=== PATIENT | female | born 1995 | race Two or more races ===

== ENCOUNTER 2024-09-15 18:40 | Emergency (ER) | payer MEDICAID, SELFPAY ==
[2024-09-15 19:09] VITALS: BP 122/81; PULSE 83; RESP 18; TEMP 37.2; O2SAT 97; BMI 31.4
--- NOTE | 2024-09-15 19:12 | PD.EDRME ---
Rapid Medical Screening Exam RME Arrival date/time: 09/15/24 18:40 29 year old female present to ED for c/o n/v/d for 1 day. 23 week . I have greeted and performed a focused initial assessment of this patient. A comprehensive ED assessment and evaluation of the patient, analysis of all test results, and completion of the medical decision making process will be conducted by additional ED providers. Chief Complaint: Nausea/Vomiting/Diarrhea Time Seen by Provider: 09/15/24 18:44 Vital signs: Vital Signs Temperature 99 F 09/15/24 19:09 Pulse Rate 83 09/15/24 19:09 Respiratory Rate 18 09/15/24 19:09 Blood Pressure 122/81 09/15/24 19:09 Pulse Oximetry (%) 97 09/15/24 19:09 Oxygen Delivery Method Room Air 09/15/24 19:09
[2024-09-15 19:39] LABS: Basophils % (Auto) 0 % (0-2.5); Eosinophils % (Auto) 0 % (0-10); Hematocrit 35.6 % (36.0-46.0); Hemoglobin 12.3 g/dL (12.0-16.0); Immature Granulocytes % (Auto) 0 % (0-0); Immature Granulocytes Auto 0.02 Thou/mm3 (0.00-0.00); Lymphocytes % (Auto) 13 % (10-50); Mean Corpuscular HGB Conc 34.6 g/dl (31.0-37.0); Mean Corpuscular Hemoglobin 30.8 pg (25.0-35.0); Mean Corpuscular Volume 89 fL (80-100); Monocytes # (Auto) 0.5 Thou/mm3 (0.0-0.8); Monocytes % (Auto) 6 % (0-12); Neutrophils # (Auto) 6.4 Thou/mm3 (1.8-7.7); Neutrophils % (Auto) 81 % (37-80); Nucleated Red Blood Cell % 0 /100 WBC (0); Platelet Count 233 Thou/mm3 (140-440); RDW Standard Deviation 43.9 fL (36.4-46.3); White Blood Count 7.9 Thou/mm3 (3.6-11.0)
[2024-09-15 19:54] LABS: Alanine Aminotransferase 37 U/L (10-49); Albumin, Serum 4.5 gm/dL (3.5-5.0); Albumin/Globulin Ratio 1.8 (1.2-2.2); Alkaline Phosphatase 89 U/L (46-116); Anion Gap 9 (7-16); Aspartate Amino Transferase 36 U/L (0-34); BUN/Creatinine Ratio 12 Ratio (12-20); Bilirubin,Total 1.1 mg/dL (0.3-1.2); Blood Urea Nitrogen 6 mg/dL (9-23); Calcium 9.3 mg/dL (8.3-10.6); Calcium (Corrected) 9.3 mg/dL (8.5-10.1); Carbon Dioxide 24.3 mMol/L (20.0-31.0); Chloride 102 mMol/L (98-107); Creatinine (Component) 0.5 mg/dL (0.6-1.3); Estimated Creatinine Clearance 200.7 mL/min (>60); Globulin 2.5 gm/dL (2.3-3.5); Glucose 95 mg/dL (74-106); Lipase 51 U/L (12-53); Osmolality,Calculated 267 (275-295); Potassium 3.7 mMol/L (3.4-5.1); Sodium 135 mMol/L (136-145); eGFR > 60 See Note
[2024-09-15 20:04] LABS: Collection Type, Urine Voided
[2024-09-15] MEDS: PROMETHAZINE INJ 25 MG/ML VIAL 12.5 MG IM (20:06)
[2024-09-15 20:14] LABS: Bilirubin,Urine Negative (Negative); Blood,Urine Negative (Negative); Clarity,Urine Turbid (Clear/Hazy); Color,Urine Yellow (Lt Yel-Yel); Glucose, Urine Negative (Negative); Ketones,Urine Trace (Negative); Leukocyte Esterase,Urine Positive (Negative); Nitrite,Urine Negative (Negative); PH,Urine 6.5 (5.0-7.0); Protein,Urine 1+ (Neg - Trace); RBC,Urine 17 /hpf (0-3); Specific Gravity,Urine 1.031 (1.001-1.035); Squamous Epithelial Cell,Urine 15 /hpf (0-5); WBC,Urine 6 /hpf (0-5)
[2024-09-15] MEDS: SODIUM CHLORIDE 0.9% 1000 ML 1,000 ML 999 ML IV ×2 (21:50→22:37)
--- NOTE | 2024-09-15 22:34 | PD.EDNV ---
Nausea/Vomit./Diarrhea-RME/HPI General Chief complaint: Nausea/Vomiting/Diarrhea Stated complaint: VOMITING/WEAK, 23 WKS PREG, NO PAIN Time Seen by Provider: 09/15/24 18:44 Arrival date/time: 09/15/24 18:40 Limitations: no limitations RME / HPI RME / HPI Narrative: 09/15/24 18:40 29 year old female present to ED for c/o n/v/d for 1 day. 23 week . I have greeted and performed a focused initial assessment of this patient. A comprehensive ED assessment and evaluation of the patient, analysis of all test results, and completion of the medical decision making process will be conducted by additional ED providers. ------- Dr. Raines's Main ED Evaluation: 29yo female who is at 23 weeks gestation presents to the ED for a complaints of nausea and vomiting since 0000. Patient states she's had persistent nausea and vomiting all day today and has felt generally weak, so she came in for evaluation. She denies any abdominal/pelvic pain, vaginal bleeding, diarrhea, fever, chills or any other associated symptoms. No known allergies. Related Data Previous Rx's ?Medication ?Instructions ?Recorded hydrocodone 5 mg-acetaminophen 325 1 tab PO BID PRN pain #10 tabs 09/23/ mg tablet ([place]) levofloxacin 500 mg tablet 500 mg PO QDAY #7 tabs 11/25/20 levofloxacin 500 mg tablet 500 mg PO QDAY #7 tabs 11/25/20 metronidazole 500 mg tablet 500 mg PO TID #21 tabs 11/25/20 (Flagyl) metronidazole 500 mg tablet 500 mg PO TID #21 tabs 11/25/20 (Flagyl) hydrocodone 5 mg-acetaminophen 325 1 tab PO BID PRN pain #7 tabs 05/02/21 mg tablet ondansetron HCl 4 mg tablet 4 mg PO Q8H PRN nausea and 05/02/21 (Zofran) vomiting #20 tabs Allergies Allergy/AdvReac Type Severity Reaction Status Date / Time No Known Allergies Allergy Verified 09/15/24 18:44 Review of Systems Review of Systems Systems Reviewed: All systems reviewed, normal except as documented Past Medical History Past Medical History CARDIAC: Negative Cardiac Disorders or Congestive Heart Failure RESPIRATORY: Negative Chronic Obstructive Pulmonary Disease (COPD) or Asthma GENITOURINARY: Negative Renal Disease ENDOCRINE: Negative Diabetes Mellitus Type 1 or Diabetes Mellitus Type 2 HEMATOLOGIC: Negative Sickle Cell Disease Social History SMOKING STATUS: 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 ED Exam General Limitations: Present no limitations General appearance: Present alert and in no apparent distress Head Head exam: Present atraumatic Eye Eye exam: Present normal appearance, PERRL and EOMI ENT ENT exam: Present normal exam, normal oropharynx and mucous membranes moist Neck Neck exam: Present normal inspection, full ROM and trachea midline Chest Chest inspection: Present normal inspection and symmetric chest wall rise Respiratory Respiratory exam: Present normal lung sounds bilaterally Cardiovascular Cardiovascular exam: Present regular rate, normal rhythm and normal heart sounds Abdominal Exam Abdominal exam: Present soft, normal bowel sounds and other (gravid, 2-3cm above umbilicus) Extremities Exam Extremities exam: Present normal inspection and full ROM Back Exam Back exam: Present normal inspection and full ROM Neurological Exam Neurological exam: Present alert, oriented X3 and CN II-XII intact Psychiatric Psychiatric exam: Present normal affect and normal mood Skin Skin exam: Present warm, dry, intact and normal color Course Quality Measures none Orders Category Date Time Status heart tone auscultation Q4H Care 09/15/24 19:14 Active IV [Insert IV] STAT Care 09/15/24 19:13 Active CBC Stat Lab 09/15/24 19:24 Completed CMP [Comprehensive Metabolic Panel] Stat Lab 09/15/24 19:24 Completed Lipase Stat Lab 09/15/24 19:24 Completed UA [Urinalysis] Stat Lab 09/15/24 19:23 Completed Urine Culture Stat Lab 09/15/24 19:23 Received Promethazine Inj [Phenergan Inj] Med 09/15/24 19:13 Discontinued 12.5 mg IM X1 ONE Sodium Chloride 0.9% 1000 ml [Ns] 1,000 ml Med 09/15/24 19:14 Discontinued IV 999 mls/hr Sodium Chloride 0.9% 1000 ml [Ns] 1,000 ml Med 09/15/24 22:33 Active IV 999 mls/hr Vital Signs Vital signs: Vital Signs Temperature 99 F 09/15/24 19:09 Pulse Rate 83 09/15/24 19:09 Respiratory Rate 18 09/15/24 19:09 Blood Pressure 122/81 09/15/24 19:09 Pulse Oximetry (%) 97 09/15/24 19:09 Oxygen Delivery Method Room Air 09/15/24 19:09 Pulse ox is 97% on room air, which is normal according to my interpretation. Nausea/Vomiting/Diarrhea Patient data External records reviewed:: [facility] previous records (Per chart review, patient was seen here on 06/27/24 for acute cystitis.) Clinical information provided by:: patient Social determinants that could affect healthcare access:: none Patient has the following chronic illnesses:: none How is presenting disease/condition affected by chronic disease/condition?: no chronic disease Evaluation data The following diagnostics were reviewed and interpreted by me:: lab results Lab and/or radiology exams considered but not ordered:: none Interpretation Summary: CBC is normal, CMP is normal, UA is unremarkable, according to my interpretation. Medications / Prescriptions Medications / Prescriptions considered but not ordered:: none Medication administrations:: Medication Administration History Sodium Chloride (Ns) 1,000 mls @ 999 mls/hr IV .Q1H1M ONE Stop: 09/15/24 23:33 Last Admin: 09/15/24 22:37 Dose: 999 mls/hr Documented By: TAE Discontinued Medications Sodium Chloride (Ns) 1,000 mls @ 999 mls/hr IV .Q1H1M ONE Stop: 09/15/24 20:14 Last Admin: 09/15/24 21:50 Dose: 999 mls/hr Documented By: TAE Promethazine HCl (Promethazine Inj 25 Mg/Ml Vial) 12.5 mg IM X1 ONE; Protocol Stop: 09/15/24 19:14 Last Admin: 09/15/24 20:06 Dose: 12.5 mg Documented By: TAE see above Consultations Consultation(s) initiated? (list below): No Diagnosis Nausea Differential Diagnosis: dehydration and other (hyperemesis gravidarum, UTI, electrolyte abnormality) Most likely diagnosis given after review of the tests above:: see below Admission Indicated Admission indicated?: not indicated Admission Request Was there a request for admission?: No Disposition Plan Disposition Plan: Discharge Discharge Attestation Discharge Attestation: The patient and all family members were given an opportunity to ask questions and understood the discharge instructions. Discharge instructions specifically effects, indications for sooner follow up or return to the emergency department, and the expected course of current diagnosis. Patient condition: Stable Discharge Plan Plan Patient Disposition: HOME (Self Care) Prescriptions/Referrals Prescriptions/Med Rec: No Action levofloxacin 500 mg tablet 500 mg PO QDAY Qty: 7 0RF metronidazole [Flagyl] 500 mg tablet 500 mg PO TID Qty: 21 0RF levofloxacin 500 mg tablet 500 mg PO QDAY Qty: 7 0RF metronidazole [Flagyl] 500 mg tablet 500 mg PO TID Qty: 21 0RF hydrocodone-acetaminophen [[place]] 5-325 mg tablet 1 tab PO BID MDD 10mg PRN (Reason: pain) Qty: 10 0RF hydrocodone-acetaminophen 5-325 mg tablet 1 tab PO BID MDD 2 PRN (Reason: pain) Qty: 7 0RF ondansetron HCl [Zofran] 4 mg tablet 4 mg PO Q8H PRN (Reason: nausea and vomiting) Qty: 20 0RF Referrals: Benjamin Roberto MD [Primary Care Provider] - In 1 week Problem List Clinical Impression: Dehydration, Intrauterine Patient/Caregiver Discharge Instructions Education Materials: ED Dehydration (Adult) Additional Instructions: Call your DATA ENTRY PROCESSOR on Thursday. Return to emergency department if you are having any pain, you feel like your water has broken, you have having any cramps in your abdomen, or any other concerns. Print Language: Albanian Stand Alone Forms: Liliana Award Info., Work/School Release, Patient Portal Info Letter
== END 2024-09-16 00:44 | disposition home or self-care (01) ==
PROVIDERS: Physician Assistant; Emergency Provider Emergency Medicine; PCP Family Medicine
DX: O99.282 Endocrine, nutritional and metabolic diseases complicating pregnancy, second trimester (principal); E86.0 Dehydration; Z3A.23 23 weeks gestation of pregnancy
CPT/HCPCS: 36415; 80053; 81001; 83690; 85025; 87086; 96372; 99284; J2550; J7030

== ENCOUNTER 2024-12-06 09:52 | Outpatient (AMB) | payer MEDICAID, SELFPAY ==
--- NOTE | 2024-12-06 10:07 | OBCLNT_ITS ---
Vital Signs 12/06/24 10:08 Height 1.73 m Height Method Stated Weight 93.95 kg Weight Measurement Method Standing Scale BMI 31.4 BP 126/86 H Blood Pressure Source Automatic Cuff Blood Pressure Location Left Upper Arm Position Sitting Respiration 14 Pulse 68 Pulse Source Monitor Temp 97.7 F Temp Source Oral Pulse Oximetry (%) 97 Oxygen Delivery Method Room Air Allergies/Home Meds Allergies & Medications Allergies No Known Allergies Allergy (Verified 12/06/24 10:13) Medication Reconciliation ondansetron HCl 4 mg tablet (Zofran) 4 mg PO Q8H PRN nausea and vomiting #20 tabs 05/02/21 [Rx Confirmed 12/06/24] Intake Visit Data Collection New Patient or Established: Established Patient (seen at [facility] within 3 years) Reason for Visit:: CARE Seen by Clinical Staff ONLY (RN/MA): No Tear Down Worker Required: No Do You Feel Safe at Home: Yes Authorities Contacted: N/A PCP or OBGYN visit in last 3 months: Yes Hx Now: Yes Are you currently on any form of Control: No Last menstrual period: 04/01/24 Pain Present Currently: No Pain Scale Used: Wright-Juarez/Numerical Pain scale:: 0 Smoking Status Smoking Status: 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 Questionnaires Covid-19 Vaccine Questionnaire Has patient been vacinated for Covid-19 Have you been vacinated for Covid-19: Yes PHQ-9 PHQ-2 Over the last 2 weeks, how often have you been bothered by any of the following problems? 1. Little interest or pleasure in doing things: not at all 2. Feeling down, depressed, or hopeless: not at all Total score: 0 PHQ-9 3. Trouble falling or staying asleep, or sleeping too much: Not at all 4. Feeling tired or having little energy: Not at all 5. Poor appetite or overeating: Not at all 6. Feeling bad about yourself - or that you are a failure or have let yourself or your family down: Not at all 7. Trouble concentrating on things, such as reading the newspaper or watching television: Not at all 8. Moving or speaking so slowly that other people could have noticed? - Or the opposite - being so fidgety or restless that you have been moving around a lot more than usual: not at all 9. Thoughts that you would be better off or of hurting yourself in some way: Not at all Total score: 0 Source: Developed by Drs. Mitchel Richardson, Renae Mariee, Rogerio Nichole and colleagues, with an educational angela from [email or web address]. Depression screen completed yes Social History Living Situation History Marital Status: Lives With: Family Housing: House Tobacco History Smoking Status: 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 Second Hand Smoke Exposure: No Alcohol History Alcohol Intake: Never Domestic Abuse History Do You Feel Safe at Home: Yes Past Medical History Past Medical History Have you ever been diagnosed with any of the following: Neurological Problems Cerebrovascular Accident (CVA): No Transient Ischemic Attacks (TIA): No Dementia: No Alzheimer's Disease: No Parkinson's Disease: No Brain Tumor: No Guillain-Crawford Syndrome: No Cardiology Problems Myocardial Infarction: No Cardiac Arrhythmia: No Atrial Fibrillation: No Angina: No Heart Murmur: No Coronary Artery Disease: No Atherosclerotic Heart Disease: No Congestive Heart Failure: No Hypertension: No (FATHER) Respiratory Problems Chronic Obstructive Pulmonary Disease (COPD): No Asthma: No Bronchitis: No Emphysema: No Pneumonia: No Stomache/Intestinal Problems Liver Cancer: No Hepatitis: No Cirrhosis: No Pancreatic Cancer: No Ulcer: No Colorectal Cancer: No Irritable Bowel: No Crohn's Disease: No Genital/Urinary Problems Chronic Kidney Disease: No Renal Disease: No Reproductive Problems Breast Cancer: No Endometriosis: No Fibroids: No Genital Herpes: No Gonorrhea: No Pelvic Inflammatory Disease: No Musculoskeletal Problems Muscular Dystrophy: No Myasthenia Gravis: No Marfan's Syndrome: No Bone Cancer: No Arthritis: No Rheumatoid Arthritis: No Head,Eye,Nose,Throat Problems Cataracts: No Glaucoma: No Blind: No Endocrine Problems Diabetes Mellitus Type 1: No Diabetes Mellitus Type 2: No Blood Problems Sickle Cell Disease: No History of Present Illness HPI Narrative 29-year-old 1 para 0 that comes for her first OB visit to [facility]. Patient has been followed at [facility] for the first part of her and she is transferring her care. Patient has had no problems with the current . Her last period is April 01, 2024. This gives due date January 06, 2025. Patient is Rh+. Hepatitis negative. RPR nonreactive. HIV negative. Her GC and Chlamydia were negative. She had normal 1 hour. Patient is due for her GBS next visit. Patient has been followed at Dr. Bro's office for her care. Ultrasounds have been normal. And baby has had normal growth. NIPT and carrier screens were negative. Patient denies chronic illness. Denies social habits. Denies any surgeries. OB Initial Visit Menstrual History Menstrual reliability: definite Flow: normal Menstrual regularity: regular Monthly: Yes Age at menarche: 12 On control pills at conception: No Date of positive home test: 05/02/24 Associated symptoms (LMP): Denies amenorrhea, nausea, vomiting, fatigue, breast tenderness, urinary frequency, irritability, bloating or other OB History : 1 # of Living Children: 0 Infection History & Risk Evaluation History of STDs: none Patient or partner has history of Genital Herpes: No Genetic Screening & History Genetic Screening/Teratology Counseling - Includes patient, baby's father, or anyone in either family with: 1. Patient's age 35 years or older as of estimated date of delivery: No 2. Thalassemia (Welsh, Citizen Of The [place], Mediterranean, or Background); MCV less than 80: No 3. Neural Tube Defect (Meningomyelocele, Spina Bifida, or Anencephaly): No 4. Congenital Heart Defect: No 5. Down Syndrome: No 6. Robby-Sachs (Ashkenazi Christianity, Cajun, Urdu Argentine): No 7. Luis Alberto Disease (Ashkenazi Christianity): No 8. Familial Dysautonomia (Ashkenazi Christianity): No 9. Sickle Cell Disease or Trait (): No 10. Hemophilia or other blood disorders: No 11. Muscular Dystrophy: No 12. Cystic Fibrosis: No 13. Faywood's Chorea: No 14. Mental Retardation/Autism: No 15. Other inherited genetic or chromosomal disorder: No 16. Maternal Metabolic Disorder (EG,TYPE 1 Diabetes, PKU): No 17. Patient or baby's father had a child with defects not listed above: No 18. Recurrent loss or a stillbirth: No 19. Medications (including supplements, vitamins, herbs or otc drugs)/illicit/recreational drugs/alcohol since last menstrual period: No 20. Any other: No Infection History 1. Live with someone with TB or exposed to TB: No 2. Rash or viral illness since last menstrual period: No 3. Hepatitis B,C: No Other (see comments) Source: [employer] OB Flowsheet OB Flowsheet Initial Weight: Not Recorded Date -?-?-?-?-?-?-?-?-?-?-?-?- EGA Weight Edema CTX Effacement BP Fundal ht Pres Dilation Effacement Station Visit Note Alb Glu FHR Mov 12/06/24 -?-?-?-?-?-?-?-?-?-?-?-?- 35w 4d 93.95 kg absent absent 126/86 35 cephalic Reports movement. Denies contractions. Patient continues to work. Continue to take vitamins. kick count discussed with patient. Medical release for records. GBS next visit return in 1 week OB check 154 active Review of Systems Review of Systems Systems Reviewed: All systems reviewed, normal except as documented Constitutional Constitutional: Denies fatigue Gastrointestinal Gastrointestinal: Denies bloating, Denies nausea and Denies vomiting Genitourinary Genitourinary: Denies amenorrhea and Denies urinary frequency Psychiatric Psychiatric: Denies irritability Endocrine Endocrine: Denies fatigue Exam General Limitations: no limitations General Appearance: alert, in no apparent distress, comfortable, cooperative, healthy appearing, well developed and well groomed Head Head exam: atraumatic, normocephalic and normal inspection Chest Chest inspection: Present normal inspection and symmetric chest wall rise Resp Respiratory exam: Present normal lung sounds bilaterally Card Cardiovascular exam: Present regular rate, normal rhythm and normal heart sounds Abdominal Abdominal exam: Present soft and normal bowel sounds Psych Psychiatric exam: Present normal affect and normal mood Assessment & Plan Diagnosis / Problem List (1) : Status: Acute Qualifiers: Weeks of gestation: 35 weeks Qualified Code(s): Z3A.35 - 35 weeks gestation of Plan continue PNV, medical release, fkc bid, note for work, gbs nv Additional Plan Follow Up: 1 Week Office Procedures OB Clinic LOC & Office Proc's Nursing/Assessment Patient Status: Established Patient OB Clinic Nursing Assessment: Medication Reconciliation, Update PMH in EMR and Vital Signs OB Clinic Coordination of Care: Complex Care and Chronic Disease 1-5, Consent,records obtained, informed consent, Education Simp Pt/Fam, Results/Orders obtained and Staff clarify orders Special Needs: Heart tones Established Patient Charge Established Patient Point Assignment: 120 Established Patient Point Charge: EP Level 4 (120-155)
[2024-12-06 10:08] VITALS: BP 126/86; PULSE 68; RESP 14; TEMP 36.5; O2SAT 97; BMI 31.4
== END 2024-12-06 10:22 | disposition home or self-care (01) ==
LOC: HODSOBC 09:52
PROVIDERS: PCP Family Medicine; Referring Provider Family Medicine; Supervising Provider Obstetrics & Gynecology; Visit Provider Advanced Practice Midwife
DX: Z34.03 Encounter for supervision of normal first pregnancy, third trimester (principal); Z3A.35 35 weeks gestation of pregnancy
CPT/HCPCS: 99214; G0463

== ENCOUNTER 2024-12-14 14:31 | Outpatient (AMB) | payer MEDICAID, SELFPAY ==
--- NOTE | 2024-12-14 14:52 | AMB.OBVISIT ---
Vital Signs 12/14/24 14:53 12/14/24 15:22 Height 1.73 m Height Method Stated Weight 92.986 kg Weight Measurement Method Standing Scale BMI 31.0 BP 138/86 H 147/94 H Blood Pressure Source Automatic Cuff Automatic Cuff Blood Pressure Location Left Upper Arm Right Lower Arm Position Sitting Sitting Respiration 14 Pulse 64 Pulse Source Monitor Temp 97.7 F Temp Source Oral Pulse Oximetry (%) 98 Oxygen Delivery Method Room Air Allergies/Home Meds Allergies & Medications Allergies No Known Allergies Allergy (Verified 12/14/24 14:54) Medication Reconciliation No Known Home Medications 12/14/24 [History Confirmed 12/14/24] Intake Visit Data Collection New Patient or Established: Established Patient (seen at [facility] within 3 years) Reason for Visit:: CARE Seen by Clinical Staff ONLY (RN/MA): No Institution Director Required: No Do You Feel Safe at Home: Yes Authorities Contacted: N/A PCP or OBGYN visit in last 3 months: Yes Date of Last PCP or OBGYN visit: 12/06/24 Hx Now: Yes Are you currently on any form of Control: No Pain Present Currently: No Pain Scale Used: Wright-Juarez/Numerical Pain scale:: 0 Smoking Status Smoking Status: 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 Questionnaires Covid-19 Vaccine Questionnaire Has patient been vacinated for Covid-19 Have you been vacinated for Covid-19: Yes PHQ-9 PHQ-2 Over the last 2 weeks, how often have you been bothered by any of the following problems? 1. Little interest or pleasure in doing things: not at all 2. Feeling down, depressed, or hopeless: not at all Total score: 0 PHQ-9 3. Trouble falling or staying asleep, or sleeping too much: Not at all 4. Feeling tired or having little energy: Not at all 5. Poor appetite or overeating: Not at all 6. Feeling bad about yourself - or that you are a failure or have let yourself or your family down: Not at all 7. Trouble concentrating on things, such as reading the newspaper or watching television: Not at all 8. Moving or speaking so slowly that other people could have noticed? - Or the opposite - being so fidgety or restless that you have been moving around a lot more than usual: not at all 9. Thoughts that you would be better off or of hurting yourself in some way: Not at all Total score: 0 Source: Developed by Drs. Mitchel Richardson, Renae Mariee, Rogerio Nichole and colleagues, with an educational angela from [employer]. Depression screen completed yes Social History Living Situation History Lives With: Family Housing: House Tobacco History Smoking Status: 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 Second Hand Smoke Exposure: No Alcohol History Alcohol Intake: Never Domestic Abuse History Do You Feel Safe at Home: Yes Past Medical History Past Medical History Have you ever been diagnosed with any of the following: Neurological Problems Cerebrovascular Accident (CVA): No Transient Ischemic Attacks (TIA): No Dementia: No Alzheimer's Disease: No Parkinson's Disease: No Brain Tumor: No Guillain-[place] Syndrome: No Cardiology Problems Myocardial Infarction: No Cardiac Arrhythmia: No Atrial Fibrillation: No Angina: No Heart Murmur: No Coronary Artery Disease: No Atherosclerotic Heart Disease: No Congestive Heart Failure: No Hypertension: No (FATHER) Respiratory Problems Chronic Obstructive Pulmonary Disease (COPD): No Asthma: No Bronchitis: No Emphysema: No Pneumonia: No Stomache/Intestinal Problems Liver Cancer: No Hepatitis: No Cirrhosis: No Pancreatic Cancer: No Ulcer: No Colorectal Cancer: No Irritable Bowel: No Crohn's Disease: No Genital/Urinary Problems Renal Disease: No Reproductive Problems Breast Cancer: No Endometriosis: No Fibroids: No Genital Herpes: No Gonorrhea: No Pelvic Inflammatory Disease: No Musculoskeletal Problems Muscular Dystrophy: No Myasthenia Gravis: No Marfan's Syndrome: No Bone Cancer: No Arthritis: No Rheumatoid Arthritis: No Head,Eye,Nose,Throat Problems Cataracts: No Glaucoma: No Blind: No Endocrine Problems Diabetes Mellitus Type 1: No Diabetes Mellitus Type 2: No Blood Problems Sickle Cell Disease: No Visit OB Visit Log OB Flowsheet Initial Weight: Not Recorded Date <del>?</del> EGA Weight Edema CTX Effacement BP Fundal ht Pres Dilation Effacement Station Visit Note Alb Glu FHR Mov 12/06/24 <del>?</del> 35w 4d 93.95 kg absent absent 126/86 35 cephalic Reports movement. Denies contractions. Patient continues to work. Continue to take vitamins. kick count discussed with patient. Medical release for records. GBS next visit return in 1 week OB check 154 active 12/14/24 <del>?</del> 36w 5d 92.986 kg absent absent 138/86 147/94 35 cephalic Patient reports being nervous today. Reviewed signs and symptoms of labor and when to go to the hospital. I discussed also pain med options at the hospital. Reviewed kick count with patient. At this time patient denies headache and blurred vision. And I reviewed PIH symptoms with patient as well. Avoid salty foods. Kick count twice a day. Increase fluids. Patient sent to labor and delivery for PIH workup. Return in 1 week OB check. GBS today. Fetus active, no edema, dtr 2 +/no clonus reviewed mfm sonos with patient, EFW 22%, 2 small vsd were noted. Patient reports being nervous today. Reviewed signs and symptoms of labor and when to go to the hospital. I discussed also pain med options at the hospital. Reviewed kick count with patient. At this time patient denies headache and blurred vision. And I reviewed PIH symptoms with patient as well. Avoid salty foods. Kick count twice a day. Increase fluids. Patient sent to labor and delivery for PIH workup. Return in 1 week OB check. GBS today. Fetus active, no edema, dtr 2 +/no clonus 156 active LILI Calculator Estimated Delivery Date Method Current WG Current Estimate 01/06/25 Ultrasound #2 36w 5d Other Estimates 01/06/25 LMP (Certain) 36w 5d 01/06/25 Ultrasound #1 36w 5d Assessment & Plan Diagnosis / Problem List (1) Encounter for care in third trimester of first : Status: Acute Plan To labor and delivery for PIH workup today. Discussed PIH precautions. Avoid salty foods. Increase fluids. GBS today. Labor precautions and kick counts twice daily. Return in 1 week OB check Additional Plan Follow Up: 1 Week (obc) Office Procedures OB Clinic LOC & Office Proc's Nursing/Assessment Patient Status: Established Patient OB Clinic Nursing Assessment: Medication Reconciliation, Update PMH in EMR and Vital Signs OB Clinic Coordination of Care: Complex Care and Chronic Disease 1-5, Consent,records obtained, informed consent, Education Simp Pt/Fam and Staff clarify orders Special Needs: Heart tones Miscellaneous Interventions: Blood/Urine Collection Established Patient Charge Established Patient Point Assignment: 145 Established Patient Point Charge: EP Level 4 (120-155)
[2024-12-14 14:53] VITALS: BP 138/86; PULSE 64; RESP 14; TEMP 36.5; O2SAT 98; BMI 31.0
[2024-12-14 15:22] VITALS: BP 147/94
== END 2024-12-14 15:34 | disposition home or self-care (01) ==
LOC: HODSOBC 14:31
PROVIDERS: PCP Advanced Practice Midwife; Referring Provider Advanced Practice Midwife; Supervising Provider Advanced Practice Midwife; Visit Provider Advanced Practice Midwife
DX: Z34.03 Encounter for supervision of normal first pregnancy, third trimester (principal); Z3A.36 36 weeks gestation of pregnancy
CPT/HCPCS: 99214; G0463

== ENCOUNTER 2024-12-14 15:35 | Observation (INO) | payer MEDICAID, SELFPAY ==
[2024-12-14] VITALS (7 sets, daily range): BP systolic 121–123; BP diastolic 79–84; PULSE 58–70; RESP 16–98; TEMP 36.7; O2SAT 98–99
[2024-12-14 16:33] LABS: Collection Type, Urine Clean Catch
[2024-12-14 16:47] LABS: Bacteria,Urine Rare; Bilirubin,Urine Negative (Negative); Blood,Urine Negative (Negative); Color,Urine Yellow (Lt Yel-Yel); Glucose, Urine Negative (Negative); Hyaline Casts,Urine < 1 /hpf (0-1); Ketones,Urine Negative (Negative); Leukocyte Esterase,Urine Positive (Negative); Nitrite,Urine Negative (Negative); Protein,Urine Trace (Neg - Trace); RBC,Urine 5 /hpf (0-3); Specific Gravity,Urine 1.022 (1.001-1.035); Squamous Epithelial Cell,Urine 18 /hpf (0-5); Urobilinogen,Urine Negative mg/dL (0.0-1.0); WBC,Urine 3 /hpf (0-5)
[2024-12-14 16:52] LABS: Clarity,Urine Hazy (Clear/Hazy)
[2024-12-14 16:59] LABS: Alanine Aminotransferase 36 U/L (10-49); Albumin, Serum 4.2 gm/dL (3.5-5.0); Albumin/Globulin Ratio 1.4 (1.2-2.2); Alkaline Phosphatase 166 U/L (46-116); Anion Gap 11 (7-16); Aspartate Amino Transferase 21 U/L (0-34); BUN/Creatinine Ratio 12 Ratio (12-20); Bilirubin,Total 1.1 mg/dL (0.3-1.2); Blood Urea Nitrogen 7 mg/dL (9-23); Calcium 9.2 mg/dL (8.3-10.6); Calcium (Corrected) 9.2 mg/dL (8.5-10.1); Carbon Dioxide 20.3 mMol/L (20.0-31.0); Chloride 105 mMol/L (98-107); Creatinine (Component) 0.6 mg/dL (0.6-1.3); Globulin 2.9 gm/dL (2.3-3.5); Glucose 75 mg/dL (74-106); Osmolality,Calculated 268 (275-295); Potassium 4.1 mMol/L (3.4-5.1); Sodium 136 mMol/L (136-145); Total Protein 7.1 gm/dL (5.7-8.2); Uric Acid 3.7 mg/dL (3.1-7.8); eGFR > 60 See Note
[2024-12-14 17:03] LABS: Basophils % (Auto) 0 % (0-2.5); Eosinophils % (Auto) 1 % (0-10); Hematocrit 39.6 % (36.0-46.0); Hemoglobin 13.5 g/dL (12.0-16.0); Immature Granulocytes % (Auto) 0 % (0-0); Immature Granulocytes Auto 0.02 Thou/mm3 (0.00-0.00); Lymphocytes # (Auto) 2.2 Thou/mm3 (1.0-4.8); Lymphocytes % (Auto) 28 % (10-50); Mean Corpuscular HGB Conc 34.1 g/dl (31.0-37.0); Mean Corpuscular Volume 88 fL (80-100); Monocytes # (Auto) 0.4 Thou/mm3 (0.0-0.8); Monocytes % (Auto) 5 % (0-12); Neutrophils % (Auto) 65 % (37-80); Nucleated Red Blood Cell % 0 /100 WBC (0); Platelet Count 276 Thou/mm3 (140-440); RDW Standard Deviation 41.7 fL (36.4-46.3); White Blood Count 7.7 Thou/mm3 (3.6-11.0)
[2024-12-14 17:12] LABS: INR 0.9 (0.9-1.3); Partial Thromboplastin Time 27.6 Seconds (22.0-36.0); Prothrombin Time 10.4 Seconds (9.0-12.2)
[2024-12-14 17:30] LABS: Fibrinogen 602 mg/dL (175-375)
== END 2024-12-14 17:30 | disposition home or self-care (01) ==
PROVIDERS: Advanced Practice Midwife; Admitting Provider Specialist; Visit Provider Specialist
DX: Z34.90 Encounter for supervision of normal pregnancy, unspecified, unspecified trimester (principal); Z3A.00 Weeks of gestation of pregnancy not specified
CPT/HCPCS: 36415; 59899; 80053; 81001; 84550; 85025; 85384; 85610; 85730

== ENCOUNTER 2024-12-19 14:53 | Outpatient (AMB) | payer MEDICAID, SELFPAY ==
--- NOTE | 2024-12-19 15:21 | AMB.OBVISIT ---
Vital Signs 12/19/24 15:22 Weight 92.306 kg Weight Measurement Method Standing Scale BP 144/88 H Blood Pressure Source Automatic Cuff Blood Pressure Location Left Upper Arm Position Sitting Respiration 18 Pulse 98 Pulse Source Monitor Temp 97.2 F Temp Source Oral Pulse Oximetry (%) 99 Oxygen Delivery Method Room Air Allergies/Home Meds Allergies & Medications Allergies No Known Allergies Allergy (Verified 12/19/24 15:22) Medication Reconciliation aspirin 81 mg chewable tablet 12/14/24 [History Confirmed 12/19/24] vit no.95-ferrous fumarate 28 mg-folic acid 800 mcg tablet () tab PO 12/14/24 [History Confirmed 12/19/24] Intake Visit Data Collection New Patient or Established: Established Patient (seen at [facility] within 3 years) Seen by Clinical Staff ONLY (RN/MA): No 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 1. Little interest or pleasure in doing things: not at all 2. Feeling down, depressed, or hopeless: not at all Total score: 0 PHQ-9 3. Trouble falling or staying asleep, or sleeping too much: Not at all 4. Feeling tired or having little energy: Not at all 5. Poor appetite or overeating: Not at all 6. Feeling bad about yourself - or that you are a failure or have let yourself or your family down: Not at all 7. Trouble concentrating on things, such as reading the newspaper or watching television: Not at all 8. Moving or speaking so slowly that other people could have noticed? - Or the opposite - being so fidgety or restless that you have been moving around a lot more than usual: not at all 9. Thoughts that you would be better off or of hurting yourself in some way: Not at all Total score: 0 If you checked off any problems, how difficult have these problems made it for you to do your work, take care of things at home, or get along with other people?: not difficult at all Source: Developed by Drs. Mitchel Richardson, Renae Mariee, Rogerio Nichole and colleagues, with an educational angela from [employer]. Depression screen completed yes Social History Living Situation History Lives With: Family Housing: House Tobacco History Smoking Status: 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 Second Hand Smoke Exposure: No Alcohol History Alcohol Intake: Never Domestic Abuse History Do You Feel Safe at Home: Yes Past Medical History Past Medical History Have you ever been diagnosed with any of the following: Neurological Problems Cerebrovascular Accident (CVA): No Transient Ischemic Attacks (TIA): No Dementia: No Alzheimer's Disease: No Parkinson's Disease: No Brain Tumor: No Guillain-[place] Syndrome: No Cardiology Problems Myocardial Infarction: No Cardiac Arrhythmia: No Atrial Fibrillation: No Angina: No Heart Murmur: No Coronary Artery Disease: No Atherosclerotic Heart Disease: No Congestive Heart Failure: No Hypertension: No (FATHER) Respiratory Problems Chronic Obstructive Pulmonary Disease (COPD): No Asthma: No Bronchitis: No Emphysema: No Pneumonia: No Stomache/Intestinal Problems Liver Cancer: No Hepatitis: No Cirrhosis: No Pancreatic Cancer: No Ulcer: No Colorectal Cancer: No Irritable Bowel: No Crohn's Disease: No Genital/Urinary Problems Renal Disease: No Reproductive Problems Breast Cancer: No Endometriosis: No Fibroids: No Genital Herpes: No Gonorrhea: No Pelvic Inflammatory Disease: No Musculoskeletal Problems Muscular Dystrophy: No Myasthenia Gravis: No Marfan's Syndrome: No Bone Cancer: No Arthritis: No Rheumatoid Arthritis: No Head,Eye,Nose,Throat Problems Cataracts: No Glaucoma: No Blind: No Endocrine Problems Diabetes Mellitus Type 1: No Diabetes Mellitus Type 2: No Blood Problems Sickle Cell Disease: No Visit OB Visit Log OB Flowsheet Initial Weight: Not Recorded Date <del>?</del> EGA Weight Edema CTX Effacement BP Fundal ht Pres Dilation Effacement Station Visit Note Alb Glu FHR Mov 12/06/24 <del>?</del> 35w 4d 93.95 kg absent absent 126/86 35 cephalic Reports movement. Denies contractions. Patient continues to work. Continue to take vitamins. kick count discussed with patient. Medical release for records. GBS next visit return in 1 week OB check 154 active 12/14/24 <del>?</del> 36w 5d 92.986 kg absent absent 138/86 147/94 35 cephalic Patient reports being nervous today. Reviewed signs and symptoms of labor and when to go to the hospital. I discussed also pain med options at the hospital. Reviewed kick count with patient. At this time patient denies headache and blurred vision. And I reviewed PIH symptoms with patient as well. Avoid salty foods. Kick count twice a day. Increase fluids. Patient sent to labor and delivery for PIH workup. Return in 1 week OB check. GBS today. Fetus active, no edema, dtr 2 +/no clonus reviewed mfm sonos with patient, EFW 22%, 2 small vsd were noted. Patient reports being nervous today. Reviewed signs and symptoms of labor and when to go to the hospital. I discussed also pain med options at the hospital. Reviewed kick count with patient. At this time patient denies headache and blurred vision. And I reviewed PIH symptoms with patient as well. Avoid salty foods. Kick count twice a day. Increase fluids. Patient sent to labor and delivery for PIH workup. Return in 1 week OB check. GBS today. Fetus active, no edema, dtr 2 +/no clonus 156 active LILI Calculator Estimated Delivery Date Method Current WG Current Estimate 01/06/25 Ultrasound #2 37w 3d Other Estimates 01/06/25 LMP (Certain) 37w 3d 01/06/25 Ultrasound #1 37w 3d Office Procedures OB Clinic LOC & Office Proc's Nursing/Assessment Patient Status: Established Patient OB Clinic Nursing Assessment: BP Monitoring, Medication Reconciliation, Update PMH in EMR and Vital Signs OB Clinic Coordination of Care: Consent,records obtained, informed consent, Education Simp Pt/Fam and Staff clarify orders Special Needs: Heart tones Established Patient Charge Established Patient Point Assignment: 105 Established Patient Point Charge: EP Level 3 (80-115)
[2024-12-19 15:22] VITALS: BP 144/88; PULSE 98; RESP 18; TEMP 36.2; O2SAT 99
--- NOTE | 2024-12-19 15:22 | AMB.OBVISIT ---
Vital Signs 12/19/24 15:22 Weight 92.306 kg Weight Measurement Method Standing Scale BP 144/88 H Blood Pressure Source Automatic Cuff Blood Pressure Location Left Upper Arm Position Sitting Respiration 18 Pulse 98 Pulse Source Monitor Temp 97.2 F Temp Source Oral Pulse Oximetry (%) 99 Oxygen Delivery Method Room Air Allergies/Home Meds Allergies & Medications Allergies No Known Allergies Allergy (Verified 12/19/24 15:22) Medication Reconciliation aspirin 81 mg chewable tablet 12/14/24 [History Confirmed 12/19/24] vit no.95-ferrous fumarate 28 mg-folic acid 800 mcg tablet () tab PO 12/14/24 [History Confirmed 12/19/24] Intake Visit Data Collection New Patient or Established: Established Patient (seen at [facility] within 3 years) Reason for Visit:: rourine OB check Do You Feel Safe at Home: Yes Authorities Contacted: N/A PCP or OBGYN visit in last 3 months: Yes Smoking Status Smoking Status: 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 Questionnaires PHQ-9 PHQ-2 Over the last 2 weeks, how often have you been bothered by any of the following problems? 1. Little interest or pleasure in doing things: not at all PHQ-9 8. Moving or speaking so slowly that other people could have noticed? - Or the opposite - being so fidgety or restless that you have been moving around a lot more than usual: not at all Total score: 0 Source: Developed by Drs. Mitchel Richardson, Renae Mariee, Rogerio Nichole and colleagues, with an educational angela from [employer]. Social History Living Situation History Lives With: Family Housing: House Tobacco History Smoking Status: 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 Second Hand Smoke Exposure: No Alcohol History Alcohol Intake: Never Domestic Abuse History Do You Feel Safe at Home: Yes Past Medical History Past Medical History Have you ever been diagnosed with any of the following: Neurological Problems Cerebrovascular Accident (CVA): No Transient Ischemic Attacks (TIA): No Dementia: No Alzheimer's Disease: No Parkinson's Disease: No Brain Tumor: No Guillain-[place] Syndrome: No Cardiology Problems Myocardial Infarction: No Cardiac Arrhythmia: No Atrial Fibrillation: No Angina: No Heart Murmur: No Coronary Artery Disease: No Atherosclerotic Heart Disease: No Congestive Heart Failure: No Hypertension: No (FATHER) Respiratory Problems Chronic Obstructive Pulmonary Disease (COPD): No Asthma: No Bronchitis: No Emphysema: No Pneumonia: No Stomache/Intestinal Problems Liver Cancer: No Hepatitis: No Cirrhosis: No Pancreatic Cancer: No Ulcer: No Colorectal Cancer: No Irritable Bowel: No Crohn's Disease: No Genital/Urinary Problems Renal Disease: No Reproductive Problems Breast Cancer: No Endometriosis: No Fibroids: No Genital Herpes: No Gonorrhea: No Pelvic Inflammatory Disease: No Musculoskeletal Problems Muscular Dystrophy: No Myasthenia Gravis: No Marfan's Syndrome: No Bone Cancer: No Arthritis: No Rheumatoid Arthritis: No Head,Eye,Nose,Throat Problems Cataracts: No Glaucoma: No Blind: No Endocrine Problems Diabetes Mellitus Type 1: No Diabetes Mellitus Type 2: No Blood Problems Sickle Cell Disease: No Visit OB Visit Log OB Flowsheet Initial Weight: Not Recorded Date <del>?</del> EGA Weight Edema CTX Effacement BP Fundal ht Pres Dilation Effacement Station Visit Note Alb Glu FHR Mov 12/06/24 <del>?</del> 35w 4d 93.95 kg absent absent 126/86 35 cephalic Reports movement. Denies contractions. Patient continues to work. Continue to take vitamins. kick count discussed with patient. Medical release for records. GBS next visit return in 1 week OB check 154 active 12/14/24 <del>?</del> 36w 5d 92.986 kg absent absent 138/86 147/94 35 cephalic Patient reports being nervous today. Reviewed signs and symptoms of labor and when to go to the hospital. I discussed also pain med options at the hospital. Reviewed kick count with patient. At this time patient denies headache and blurred vision. And I reviewed PIH symptoms with patient as well. Avoid salty foods. Kick count twice a day. Increase fluids. Patient sent to labor and delivery for PIH workup. Return in 1 week OB check. GBS today. Fetus active, no edema, dtr 2 +/no clonus reviewed mfm sonos with patient, EFW 22%, 2 small vsd were noted. Patient reports being nervous today. Reviewed signs and symptoms of labor and when to go to the hospital. I discussed also pain med options at the hospital. Reviewed kick count with patient. At this time patient denies headache and blurred vision. And I reviewed PIH symptoms with patient as well. Avoid salty foods. Kick count twice a day. Increase fluids. Patient sent to labor and delivery for PIH workup. Return in 1 week OB check. GBS today. Fetus active, no edema, dtr 2 +/no clonus 156 active 12/19/24 <del>?</del> 37w 3d 92.306 kg absent absent 144/88 36 cephalic review GBS results. Discussed PIH signs and symptoms. Comfort measures for labor. Discussed exercises to help turn baby. And improve backache. Kick counts twice a day. ER precautions and parameters. Patient sent to labor and delivery for rule out PIH. appointment in 1 week. protien: +1, nitrites-/leuk +1 159 active LILI Calculator Estimated Delivery Date Method Current WG Current Estimate 01/06/25 Ultrasound #2 37w 3d Other Estimates 01/06/25 LMP (Certain) 37w 3d 01/06/25 Ultrasound #1 37w 3d Assessment & Plan Diagnosis / Problem List (1) Encounter for care in third trimester of first : Status: Acute Plan Reviewed PIH precautions. Discussed ER precautions and parameters. Labor precautions given to patient. Comfort measures for discomforts. Kick counts twice a day. Increase fluids. Avoid salt. Patient sent to labor and delivery for PIH workup. Return week OB check Additional Plan Follow Up: 1 Week (obc) Office Procedures OB Clinic LOC & Office Proc's Nursing/Assessment Patient Status: Established Patient OB Clinic Nursing Assessment: BP Monitoring, Medication Reconciliation, Update PMH in EMR and Vital Signs OB Clinic Coordination of Care: Consent,records obtained, informed consent, Education Simp Pt/Fam and Staff clarify orders Special Needs: Heart tones Established Patient Charge Established Patient Point Assignment: 105 Established Patient Point Charge: EP Level 3 (80-115)
== END 2024-12-19 15:36 | disposition home or self-care (01) ==
LOC: HODSOBC 14:53
PROVIDERS: Supervising Provider Advanced Practice Midwife; Visit Provider Advanced Practice Midwife
DX: Z3A.36 36 weeks gestation of pregnancy (principal); Z34.03 Encounter for supervision of normal first pregnancy, third trimester; Z3A.37 37 weeks gestation of pregnancy
CPT/HCPCS: 99213; G0463

== ENCOUNTER 2024-12-19 15:50 | Outpatient (CLI) | payer MEDICAID, SELFPAY ==
[2024-12-19 16:24] VITALS: BP 136/83; PULSE 55
[2024-12-19 16:37] VITALS: BMI 35.0
[2024-12-19 16:41] VITALS: BP 130/81; PULSE 53
[2024-12-19 16:44] LABS: Collection Type, Urine Clean Catch
[2024-12-19 16:56] VITALS: BP 132/85; PULSE 62
[2024-12-19 17:03] LABS: Basophils % (Auto) 0 % (0-2.5); Eosinophils # (Auto) 0.1 Thou/mm3 (0.0-0.5); Eosinophils % (Auto) 1 % (0-10); Hematocrit 35.5 % (36.0-46.0); Hemoglobin 12.4 g/dL (12.0-16.0); Immature Granulocytes % (Auto) 0 % (0-0); Immature Granulocytes Auto 0.02 Thou/mm3 (0.00-0.00); Lymphocytes # (Auto) 1.9 Thou/mm3 (1.0-4.8); Lymphocytes % (Auto) 28 % (10-50); Mean Corpuscular HGB Conc 34.9 g/dl (31.0-37.0); Mean Corpuscular Volume 86 fL (80-100); Monocytes # (Auto) 0.4 Thou/mm3 (0.0-0.8); Monocytes % (Auto) 6 % (0-12); Neutrophils # (Auto) 4.4 Thou/mm3 (1.8-7.7); Neutrophils % (Auto) 64 % (37-80); Nucleated Red Blood Cell % 0 /100 WBC (0); Platelet Count 224 Thou/mm3 (140-440); Red Blood Count 4.13 Miln/mm3 (4.00-5.20); White Blood Count 6.9 Thou/mm3 (3.6-11.0)
[2024-12-19 17:11] VITALS: BP 143/82; PULSE 57
[2024-12-19 17:26] VITALS: BP 137/81; PULSE 64
[2024-12-19 17:27] LABS: Fibrinogen 547 mg/dL (175-375); INR 0.9 (0.9-1.3); Partial Thromboplastin Time 26.2 Seconds (22.0-36.0); Prothrombin Time 10.2 Seconds (9.0-12.2)
[2024-12-19 17:30] LABS: Bilirubin,Urine Negative (Negative); Blood,Urine 3+ (Negative); Clarity,Urine Turbid (Clear/Hazy); Color,Urine Yellow (Lt Yel-Yel); Glucose, Urine Negative (Negative); Ketones,Urine Negative (Negative); Leukocyte Esterase,Urine Positive (Negative); Nitrite,Urine Negative (Negative); PH,Urine 6.5 (5.0-7.0); Protein,Urine Trace (Neg - Trace); RBC,Urine 118 /hpf (0-3); Squamous Epithelial Cell,Urine 16 /hpf (0-5); Urobilinogen,Urine Negative mg/dL (0.0-1.0); WBC,Urine 6 /hpf (0-5)
[2024-12-19 17:36] LABS: Alanine Aminotransferase 51 U/L (10-49); Albumin, Serum 3.9 gm/dL (3.5-5.0); Albumin/Globulin Ratio 1.4 (1.2-2.2); Alkaline Phosphatase 173 U/L (46-116); Anion Gap 9 (7-16); Aspartate Amino Transferase 25 U/L (0-34); BUN/Creatinine Ratio 10 Ratio (12-20); Bilirubin,Total 0.8 mg/dL (0.3-1.2); Blood Urea Nitrogen < 5 mg/dL (9-23); Calcium 9.3 mg/dL (8.3-10.6); Calcium (Corrected) 9.4 mg/dL (8.5-10.1); Chloride 109 mMol/L (98-107); Creatinine (Component) 0.5 mg/dL (0.6-1.3); Estimated Creatinine Clearance 184.7 mL/min (>60); Globulin 2.7 gm/dL (2.3-3.5); Glucose 71 mg/dL (74-106); LDH (Lactate Dehydrogenase) 151 U/L (120-246); Osmolality,Calculated 274 (275-295); Potassium 3.7 mMol/L (3.4-5.1); Sodium 140 mMol/L (136-145); Total Protein 6.6 gm/dL (5.7-8.2); Uric Acid 3.8 mg/dL (3.1-7.8); eGFR > 60 See Note
[2024-12-19 17:41] VITALS: BP 118/72; PULSE 66
== END 2024-12-19 17:50 | disposition home or self-care (01) ==
LOC: CNST 15:56 → S4SX 15:56
PROVIDERS: Referring Provider Obstetrics & Gynecology; Visit Provider Obstetrics & Gynecology
DX: Z34.03 Encounter for supervision of normal first pregnancy, third trimester (principal); Z36.89 Encounter for other specified antenatal screening; Z3A.37 37 weeks gestation of pregnancy
CPT/HCPCS: 36415; 80053; 81001; 83615; 84550; 85025; 85384; 85610; 85730

== ENCOUNTER 2024-12-24 16:57 | Observation (INO) | payer MEDICAID, SELFPAY ==
[2024-12-24 17:09] VITALS: BP 132/79; PULSE 71
[2024-12-24 17:12] VITALS: BMI 35.5
--- NOTE | 2024-12-24 17:27 | XR_ITS ---
Examination: Complete OB ultrasound greater than 14 weeks Date and time of exam: December 24, 2024 1833 hours INDICATIONS: Vaginal bleeding and pelvic pain today Findings: Viable intrauterine single fetus with single amniotic sac presentation cephalic spine maternal right Cardiac motion 126 BPM Placenta posterior grade 2 Umbilical cord insertion seen Amniotic fluid index 14.8 cm Cervix 2.6 cm Right ovary 5.3 cm arterial flow Left ovary obscured by bowel gas. Composite estimated gestational age based on BPD, head circumference, abdominal circumference, femur length is 38 weeks 1 day Estimated weight 3328 g. Survey of intracranial anatomy, spinal anatomy, abdominal anatomy, four-chamber heart performed with no abnormalities identified. Impression: Viable intrauterine gestation cephalic presentation Placenta posterior grade 2 no abruption.
[2024-12-24 17:46] VITALS: BP 132/79; PULSE 71; RESP 18; RESP 99; TEMP 36.6
[2024-12-24 17:51] LABS: Collection Type, Urine Clean Catch
[2024-12-24 17:58] LABS: Amorphous Crystals,Urine Present (Absent); Bilirubin,Urine Negative (Negative); Blood,Urine 3+ (Negative); Glucose, Urine Negative (Negative); Ketones,Urine Negative (Negative); Leukocyte Esterase,Urine Positive (Negative); Nitrite,Urine Negative (Negative); PH,Urine 7.5 (5.0-7.0); Protein,Urine 1+ (Neg - Trace); RBC,Urine 5865 /hpf (0-3); Specific Gravity,Urine 1.022 (1.001-1.035); Squamous Epithelial Cell,Urine 6 /hpf (0-5); Urobilinogen,Urine Negative mg/dL (0.0-1.0); WBC,Urine 6 /hpf (0-5)
[2024-12-24 18:00] LABS: Clarity,Urine Turbid (Clear/Hazy); Color,Urine Lt-Red (Lt Yel-Yel)
[2024-12-24 18:54] VITALS: BP 137/86; PULSE 63
[2024-12-24 19:00] VITALS: BP 127/89; PULSE 60
[2024-12-24 19:03] VITALS: BP 115/76; PULSE 65
[2024-12-25 11:36] LABS: BVAG Candida Positive (Negative); Bacterial Vaginosis Markers Positive (Negative); Candida glabrata Negative (Negative); Candida krusei PCR Negative (Negative); Trichomonas Negative (Negative)
== END 2024-12-24 20:24 | disposition home or self-care (01) ==
PROVIDERS: Admitting Provider Advanced Practice Midwife; Visit Provider Advanced Practice Midwife
DX: O26.853 Spotting complicating pregnancy, third trimester (principal); Z3A.38 38 weeks gestation of pregnancy
CPT/HCPCS: 59025; 59899; 76805; 81001; 81514

== ENCOUNTER 2024-12-26 14:45 | Outpatient (AMB) | payer MEDICAID, SELFPAY ==
--- NOTE | 2024-12-26 15:26 | OBCLNT_ITS ---
Vital Signs 12/26/24 15:27 12/26/24 15:30 12/26/24 16:06 Height 1.63 m Height Method Stated Weight 11.34 kg Weight Measurement Method Standing Scale BMI 4.2 BP 151/104 H 142/90 H 138/87 H Blood Pressure Source Automatic Cuff Automatic Cuff Automatic Cuff Blood Pressure Location Right Upper Arm Left Upper Arm Left Upper Arm Position Sitting Sitting Respiration 18 Pulse 66 Pulse Source Monitor Temp 98.2 F Temp Source Temporal Artery Scan Pulse Oximetry (%) 98 Oxygen Delivery Method Room Air Allergies/Home Meds Allergies & Medications Allergies No Known Allergies Allergy (Verified 12/26/24 15:28) Medication Reconciliation aspirin 81 mg chewable tablet 12/14/24 [History Confirmed 12/26/24] vit no.95-ferrous fumarate 28 mg-folic acid 800 mcg tablet () tab PO 12/14/24 [History Confirmed 12/26/24] fluconazole 150 mg tablet 150 mg PO QDAY 3 days #3 tabs 12/25/24 [Rx Confirmed 12/26/24] metronidazole 500 mg tablet 500 mg PO BID 7 days #14 tabs 12/25/24 [Rx Confirmed 12/26/24] Intake Visit Data Collection New Patient or Established: Established Patient (seen at [facility] within 3 years) Reason for Visit:: OBC Do You Feel Safe at Home: Yes Authorities Contacted: N/A PCP or OBGYN visit in last 3 months: Yes Pain Present Currently: No Smoking Status Smoking Status: 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 Questionnaires Covid-19 Vaccine Questionnaire Has patient been vacinated for Covid-19 Have you been vacinated for Covid-19: Yes PHQ-9 PHQ-2 Over the last 2 weeks, how often have you been bothered by any of the following problems? 1. Little interest or pleasure in doing things: not at all 2. Feeling down, depressed, or hopeless: not at all Total score: 0 PHQ-9 8. Moving or speaking so slowly that other people could have noticed? - Or the opposite - being so fidgety or restless that you have been moving around a lot more than usual: not at all Source: Developed by Drs. Mitchel Richardson, Renae Mariee, Rogerio Nichole and colleagues, with an educational angela from [employer]. Depression screen completed yes Social History Living Situation History Lives With: Family Housing: House Tobacco History Smoking Status: 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 Second Hand Smoke Exposure: No Alcohol History Alcohol Intake: Never Domestic Abuse History Do You Feel Safe at Home: Yes Past Medical History Past Medical History Have you ever been diagnosed with any of the following: Neurological Problems Cerebrovascular Accident (CVA): No Transient Ischemic Attacks (TIA): No Dementia: No Alzheimer's Disease: No Parkinson's Disease: No Brain Tumor: No Guillain-Denniston Syndrome: No Cardiology Problems Myocardial Infarction: No Cardiac Arrhythmia: No Atrial Fibrillation: No Angina: No Heart Murmur: No Coronary Artery Disease: No Atherosclerotic Heart Disease: No Congestive Heart Failure: No Hypertension: No (FATHER) Respiratory Problems Chronic Obstructive Pulmonary Disease (COPD): No Asthma: No Bronchitis: No Emphysema: No Pneumonia: No Stomache/Intestinal Problems Liver Cancer: No Hepatitis: No Cirrhosis: No Pancreatic Cancer: No Ulcer: No Colorectal Cancer: No Irritable Bowel: No Crohn's Disease: No Genital/Urinary Problems Renal Disease: No Reproductive Problems Breast Cancer: No Endometriosis: No Fibroids: No Genital Herpes: No Gonorrhea: No Pelvic Inflammatory Disease: No Musculoskeletal Problems Muscular Dystrophy: No Myasthenia Gravis: No Marfan's Syndrome: No Bone Cancer: No Arthritis: No Rheumatoid Arthritis: No Head,Eye,Nose,Throat Problems Cataracts: No Glaucoma: No Blind: No Endocrine Problems Diabetes Mellitus Type 1: No Diabetes Mellitus Type 2: No Blood Problems Sickle Cell Disease: No Visit OB Visit Log OB Flowsheet Initial Weight: Not Recorded Date -?-?-?-?-?-?-?-?-?-?-?-?- EGA Weight Edema CTX Effacement BP Fundal ht Pres Dilation Effacement Station Visit Note Alb Glu FHR Mov 12/06/24 -?-?-?-?-?-?-?-?-?-?-?-?- 35w 4d 93.95 kg absent absent 126/86 35 cephalic Reports movement. Denies contractions. Patient continues to work. Continue to take vitamins. kick count discussed with patient. Medical release for records. GBS next visit return in 1 week OB check 154 active 12/14/24 -?-?-?-?-?-?-?-?-?-?-?-?- 36w 5d 92.986 kg absent absent 138/86 147/94 35 cephalic [place] ent reports being nervous today. Reviewed signs and symptoms of labor and when to go to the hospital. I discussed also pain med options at the hospital. Reviewed kick count with patient. At this time patient denies headache and blurred vision. And I reviewed PIH symptoms with patient as well. Avoid salty foods. Kick count twice a day. Increase fluids. Patient sent to labor and delivery for PIH workup. Return in 1 week OB check. GBS today. Fetus active, no edema, dtr 2 +/no clonus reviewed mfm sonos with haven ent, EFW 22%, 2 small vsd were noted. Patient reports being nervous today. Reviewed signs and symptoms of labor and when to go to the hospital. I discussed also pain med options at the hospital. Reviewed kick count with patient. At this time patient denies headache and blurred vision. And I reviewed PIH symptoms with patient as well. Avoid salty foods. Kick count twice a day. Increase fluids. Patient sent to labor and delivery for PIH workup. Return in 1 week OB check. GBS today. Fetus active, no edema, dtr 2 +/no clonus 156 active 12/19/24 -?-?-?-?-?-?-?-?-?-?-?-?- 37w 3d 92.306 kg absent absent 144/88 36 cephalic review GBS results. Discussed PIH signs and symptoms. Comfort measures for labor. Discussed exercises to help turn baby. And improve backache. Kick counts twice a day. ER precautions and parameters. Patient sent to labor and delivery for rule out PIH. appointment in 1 week. protien: +1, nitrites-/leuk +1 159 active 12/26/24 -?-?-?-?-?-?-?-?-?-?-?-?- 38w 3d 11.34 kg absent absent 151/104 142/90 138/87 37 cephalic lyn es PIH complaints, no headache, vision clear, no pedal edema, dtr !+,no clonus. fetus active, occ cramps. review PIH s/s and labor precaution, fkc bid, increased rest. discuss danger s/s. sve and possible IOL nv 156 active LILI Calculator Estimated Delivery Date Method Current WG Current Estimate 05/09/25 Ultrasound #2 38w 3d Other Estimates 01/06/25 LMP (Certain) 38w 3d 01/06/25 Ultrasound #1 38w 3d Assessment & Plan Diagnosis / Problem List (1) Encounter for care in third trimester of first : Status: Acute Plan Discussed PIH signs and symptoms. Discussed ER precautions. Increase rest either side. Increase fluids. Continue vitamins. kick count twice a day. Return in a week for OB check. Additional Plan Follow Up: 1 Week (obc) Office Procedures OB Clinic LOC & Office Proc's Nursing/Assessment Patient Status: Established Patient OB Clinic Nursing Assessment: Medication Reconciliation, Update PMH in EMR and Vital Signs OB Clinic Coordination of Care: Complex Care and Chronic Disease 1-5, Education Complex Pt/Fam and Staff clarify orders Special Needs: Heart tones Established Patient Charge Established Patient Point Assignment: 115 Established Patient Point Charge: EP Level 3 (80-115)
[2024-12-26 15:27] VITALS: BP 151/104; PULSE 66; RESP 18; TEMP 36.8; O2SAT 98
[2024-12-26 15:30] VITALS: BP 142/90
[2024-12-26 16:06] VITALS: BP 138/87
== END 2024-12-26 16:12 | disposition home or self-care (01) ==
LOC: HODSOBC 14:45
PROVIDERS: Supervising Provider Advanced Practice Midwife; Visit Provider Advanced Practice Midwife
DX: Z34.03 Encounter for supervision of normal first pregnancy, third trimester (principal); Z3A.38 38 weeks gestation of pregnancy
CPT/HCPCS: 99213; G0463

== ENCOUNTER 2025-01-02 13:53 | Outpatient (AMB) | payer MEDICAID, SELFPAY ==
--- NOTE | 2025-01-02 14:00 | OBCLNT_ITS ---
Vital Signs 01/02/25 14:04 Height 1.63 m Height Method Stated Weight 91.285 kg Weight Measurement Method Standing Scale BMI 34.3 BP 136/89 H Blood Pressure Source Automatic Cuff Blood Pressure Location Left Upper Arm Position Sitting Respiration 14 Pulse 70 Pulse Source Monitor Temp 97.8 F Temp Source Oral Pulse Oximetry (%) 98 Oxygen Delivery Method Room Air Allergies/Home Meds Allergies & Medications Allergies No Known Allergies Allergy (Verified 01/02/25 14:05) Medication Reconciliation aspirin 81 mg chewable tablet 12/14/24 [History Confirmed 01/02/25] vit no.95-ferrous fumarate 28 mg-folic acid 800 mcg tablet () tab PO 12/14/24 [History Confirmed 01/02/25] Intake Visit Data Collection New Patient or Established: Established Patient (seen at [facility] within 3 years) Reason for Visit:: care Seen by Clinical Staff ONLY (RN/MA): No Emergency Department Coordinator Required: No Do You Feel Safe at Home: Yes Authorities Contacted: N/A PCP or OBGYN visit in last 3 months: Yes Hx Now: Yes Are you currently on any form of Control: No Pain Present Currently: No Pain Scale Used: Wright-Juarez/Numerical Pain scale:: 0 Smoking Status Smoking Status: 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 Questionnaires Covid-19 Vaccine Questionnaire Has patient been vacinated for Covid-19 Have you been vacinated for Covid-19: Yes PHQ-9 PHQ-2 Over the last 2 weeks, how often have you been bothered by any of the following problems? 1. Little interest or pleasure in doing things: not at all 2. Feeling down, depressed, or hopeless: not at all Total score: 0 PHQ-9 3. Trouble falling or staying asleep, or sleeping too much: Not at all 4. Feeling tired or having little energy: Not at all 5. Poor appetite or overeating: Not at all 6. Feeling bad about yourself - or that you are a failure or have let yourself or your family down: Not at all 7. Trouble concentrating on things, such as reading the newspaper or watching television: Not at all 8. Moving or speaking so slowly that other people could have noticed? - Or the opposite - being so fidgety or restless that you have been moving around a lot more than usual: not at all 9. Thoughts that you would be better off or of hurting yourself in some way: Not at all Total score: 0 Source: Developed by Drs. Mitchel Richardson, Renae Mariee, Rogerio Nichole and colleagues, with an educational angela from [employer]. Depression screen completed yes Social History Living Situation History Lives With: Family Housing: House Tobacco History Smoking Status: 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 Second Hand Smoke Exposure: No Alcohol History Alcohol Intake: Never Domestic Abuse History Do You Feel Safe at Home: Yes Past Medical History Past Medical History Have you ever been diagnosed with any of the following: Neurological Problems Cerebrovascular Accident (CVA): No Transient Ischemic Attacks (TIA): No Dementia: No Alzheimer's Disease: No Parkinson's Disease: No Brain Tumor: No Guillain-Witt Syndrome: No Cardiology Problems Myocardial Infarction: No Cardiac Arrhythmia: No Atrial Fibrillation: No Angina: No Heart Murmur: No Coronary Artery Disease: No Atherosclerotic Heart Disease: No Congestive Heart Failure: No Hypertension: No (FATHER) Respiratory Problems Chronic Obstructive Pulmonary Disease (COPD): No Asthma: No Bronchitis: No Emphysema: No Pneumonia: No Stomache/Intestinal Problems Liver Cancer: No Hepatitis: No Cirrhosis: No Pancreatic Cancer: No Ulcer: No Colorectal Cancer: No Irritable Bowel: No Crohn's Disease: No Genital/Urinary Problems Renal Disease: No Reproductive Problems Breast Cancer: No Endometriosis: No Fibroids: No Genital Herpes: No Gonorrhea: No Pelvic Inflammatory Disease: No Musculoskeletal Problems Muscular Dystrophy: No Myasthenia Gravis: No Marfan's Syndrome: No Bone Cancer: No Arthritis: No Rheumatoid Arthritis: No Head,Eye,Nose,Throat Problems Cataracts: No Glaucoma: No Blind: No Endocrine Problems Diabetes Mellitus Type 1: No Diabetes Mellitus Type 2: No Blood Problems Sickle Cell Disease: No Care OB Visit Log OB Flowsheet Initial Weight: Not Recorded Date -?-?-?-?-?-?-?-?-?-?-?-?- EGA Weight Edema CTX Effacement BP Fundal ht Pres Dilation Effacement Station Visit Note Alb Glu FHR Mov 12/06/24 -?-?-?-?-?-?-?-?-?-?-?-?- 35w 4d 93.95 kg absent absent 126/86 35 cephalic Reports movement. Denies contractions. Patient continues to work. Continue to take vitamins. kick count discussed with patient. Medical release for records. GBS next visit return in 1 week OB check 154 active 12/14/24 -?-?-?-?-?-?-?-?-?-?-?-?- 36w 5d 92.986 kg absent absent 138/86 147/94 35 cephalic [place] ent reports being nervous today. Reviewed signs and symptoms of labor and when to go to the hospital. I discussed also pain med options at the hospital. Reviewed kick count with patient. At this time patient denies headache and blurred vision. And I reviewed PIH symptoms with patient as well. Avoid salty foods. Kick count twice a day. Increase fluids. Patient sent to labor and delivery for PIH workup. Return in 1 week OB check. GBS today. Fetus active, no edema, dtr 2 +/no clonus reviewed mfm sonos with [place] ent, EFW 22%, 2 small vsd were noted. Patient reports being nervous today. Reviewed signs and symptoms of labor and when to go to the hospital. I discussed also pain med options at the hospital. Reviewed kick count with patient. At this time patient denies headache and blurred vision. And I reviewed PIH symptoms with patient as well. Avoid salty foods. Kick count twice a day. Increase fluids. Patient sent to labor and delivery for PIH workup. Return in 1 week OB check. GBS today. Fetus active, no edema, dtr 2 +/no clonus 156 active 12/19/24 -?-?-?-?-?-?-?-?-?-?-?-?- 37w 3d 92.306 kg absent absent 144/88 36 cephalic review GBS results. Discussed PIH signs and symptoms. Comfort measures for labor. Discussed exercises to help turn baby. And improve backache. Kick counts twice a day. ER precautions and parameters. Patient sent to labor and delivery for rule out PIH. appointment in 1 week. protien: +1, nitrites-/leuk +1 159 active 12/26/24 -?-?-?-?-?-?-?-?-?-?-?-?- 38w 3d 11.34 kg absent absent 151/104 142/90 138/87 37 cephalic lyn es PIH complaints, no headache, vision clear, no pedal edema, dtr !+,no clonus. fetus active, occ cramps. review PIH s/s and labor precaution, fkc bid, increased rest. discuss danger s/s. sve and possible IOL nv 156 active 01/02/25 -?-?-?-?-?-?-?-?-?-?-?-?- 39w 3d 91.285 kg absent frequent 136/89 37 ceph alic 25 -2 SVE: L/FTP//2, soft, mid. irreg UC, no leaking or bleeding, no visual changes, no headache. fetus active. schedule IOL 01/06/25, discuss with patient labor precaution, fkc bid, reviewed IOL 156 active LILI Calculator Estimated Delivery Date Method Current WG Current Estimate 01/06/25 Ultrasound #2 39w 3d Other Estimates 01/06/25 LMP (Certain) 39w 3d 01/06/25 Ultrasound #1 39w 3d Assessment & Plan Diagnosis / Problem List (1) Encounter for care in third trimester of first : Status: Acute Plan labor precaution, fkc bid, discuss IOL with patient, schedule for 01/06/25, PIH precaution reviewed. increase fluid, RTC 1 week Additional Plan Follow Up: 1 Week (obc) Office Procedures OB Clinic LOC & Office Proc's Nursing/Assessment Patient Status: Established Patient OB Clinic Nursing Assessment: Medication Reconciliation, Update PMH in EMR and Vital Signs OB Clinic Coordination of Care: Complex Care and Chronic Disease 1-5, Consent,records obtained, informed consent, Education Simp Pt/Fam, Results/Orders obtained and Staff clarify orders Special Needs: Heart tones Established Patient Charge Established Patient Point Assignment: 120 Established Patient Point Charge: EP Level 4 (120-155)
[2025-01-02 14:04] VITALS: BP 136/89; PULSE 70; RESP 14; TEMP 36.6; O2SAT 98; BMI 34.3
== END 2025-01-02 14:54 | disposition home or self-care (01) ==
LOC: HODSOBC 13:53
PROVIDERS: Supervising Provider Advanced Practice Midwife; Visit Provider Advanced Practice Midwife
DX: Z34.03 Encounter for supervision of normal first pregnancy, third trimester (principal); Z3A.39 39 weeks gestation of pregnancy
CPT/HCPCS: 81001; 99214; G0463

== ENCOUNTER 2025-01-06 07:50 | Inpatient (IN) | payer MEDICAID, SELFPAY ==
[2025-01-06] VITALS (21 sets, daily range): BP systolic 123–159; BP diastolic 72–95; PULSE 52–95; RESP 16–20; TEMP 36.6–36.7; O2SAT 95–98; BMI 34.2
[2025-01-06] MEDS: RINGERS LACTATED 1000 ML 1,000 ML 100 ML IV ×2 (08:49→18:18)
--- NOTE | 2025-01-06 08:54 | XR_ITS ---
Examination: age Limited TECHNIQUE: Limited transabdominal sonographic images pelvis Exam date and time: January 06, 2025 0909 hours INDICATIONS: Vaginal bleeding and pelvic pain December 24, 2024, unknown presentation FINDINGS: Viable intrauterine gestation transverse presentation, head maternal right Cardiac motion 140 BPM Amniotic fluid index 6.8 cm Estimated weight 3156.7 g Estimated gestational age 38 weeks 1 day IMPRESSION: Viable intrauterine gestation transverse presentation
[2025-01-06 09:10] LABS: Basophils % (Auto) 0 % (0-2.5); Eosinophils # (Auto) 0.1 Thou/mm3 (0.0-0.5); Eosinophils % (Auto) 1 % (0-10); Hemoglobin 13.7 g/dL (12.0-16.0); Immature Granulocytes % (Auto) 0 % (0-0); Immature Granulocytes Auto 0.03 Thou/mm3 (0.00-0.00); Lymphocytes # (Auto) 3.1 Thou/mm3 (1.0-4.8); Lymphocytes % (Auto) 31 % (10-50); Mean Corpuscular HGB Conc 35.1 g/dl (31.0-37.0); Mean Corpuscular Hemoglobin 30.5 pg (25.0-35.0); Mean Corpuscular Volume 87 fL (80-100); Monocytes # (Auto) 0.6 Thou/mm3 (0.0-0.8); Monocytes % (Auto) 6 % (0-12); Neutrophils # (Auto) 6.2 Thou/mm3 (1.8-7.7); Neutrophils % (Auto) 62 % (37-80); Nucleated Red Blood Cell % 0 /100 WBC (0); Platelet Count 251 Thou/mm3 (140-440); RDW Standard Deviation 40.8 fL (36.4-46.3); Red Blood Count 4.49 Miln/mm3 (4.00-5.20); White Blood Count 10.1 Thou/mm3 (3.6-11.0)
[2025-01-06 09:41] LABS: Syphilis Nonreactive (Nonreactive)
[2025-01-06 09:55] LABS: Collection Type, Urine Voided
[2025-01-06 10:02] LABS: Alanine Aminotransferase 36 U/L (10-49); Albumin/Globulin Ratio 1.5 (1.2-2.2); Alkaline Phosphatase 184 U/L (46-116); Anion Gap 9 (7-16); Aspartate Amino Transferase 17 U/L (0-34); BUN/Creatinine Ratio 20 Ratio (12-20); Bilirubin,Total 0.5 mg/dL (0.3-1.2); Blood Urea Nitrogen 10 mg/dL (9-23); Calcium 8.7 mg/dL (8.3-10.6); Calcium (Corrected) 8.7 mg/dL (8.5-10.1); Carbon Dioxide 17.9 mMol/L (20.0-31.0); Chloride 111 mMol/L (98-107); Creatinine (Component) 0.5 mg/dL (0.6-1.3); Estimated Creatinine Clearance 184.2 mL/min (>60); Globulin 2.6 gm/dL (2.3-3.5); Glucose 88 mg/dL (74-106); Osmolality,Calculated 273 (275-295); Potassium 4.1 mMol/L (3.4-5.1); Sodium 138 mMol/L (136-145); Total Protein 6.6 gm/dL (5.7-8.2); Uric Acid 3.9 mg/dL (3.1-7.8); eGFR > 60 See Note
--- NOTE | 2025-01-06 10:07 | ESHP_ITS ---
Documentation for date of: 01/06/25 OB Labor/Induct. HPI History of Present Illness Chief complaint: induction : 1 Para: 0 Term pregnancies: 0 pregnancies: 0 Living children: 0 History of Abortions: Spontaneous and Elective: 0 History of Vaginal deliveries: 0 History of sections: No History of : No Date of last menstrual period: 04/02/24 LILI: 01/07/25 Gestational Age (weeks): 39 Gestational Age (days): 5 Gestational age based on last menstrual period: 39 History of present illness: 29-year-old 1 para 0 for induction of labor. Patient has been followed at both [facility] in [facility] medical OB clinic. Patient's first visit is [facility] was 7 weeks. Her records are in the chart. Last. April 02, 2024. Estimated due date January 07, 2025. Patient was scheduled for induction because of elevated blood pressures and obesity. PIH labs have been normal. Patient is O+, antibody screen negative, RPR nonreactive, rubella immune, hepatitis B negative, hep C negative, HIV negative, GC and Chlamydia were negative. 1 hour was negative. Her A1c was 5.1. Patient had several anatomy scans and MFM scans. Her first MFM appointment was June 30 at 12 weeks 6 and this confirmed dates and showed normal NT scan. Patient is 20 weeks scan the fetus had a small VSD that had resolved. Patient is GBS negative. Denies social habits. Denies surgery. And chronic illness. History of Present Dating criteria: LMP confirmed by 1st trimester US Adequate Care: Yes Ultrasounds: normal 1st trimester US and normal mid trimester US Obstetrical complications: gestational hypertension (elevated bmi) Medical complications: none Labs Labs: Positive: Rubella Titre, Negative: RPR, Hepatitis B, HIV, Chlamydia, Gonorrhea and Group Beta Strep and Unknown: Herpes Type 1, Herpes Type 2 and Covid-19 Past Medical History Surgical History SURGICAL: Negative Section Meds Home Medications and Allergies Home Medications ?Medication ?Instructions ?Recorded ?Confirmed ?Type aspirin 81 mg chewable tablet 12/14/24 01/02/25 Histo ry vit no.95-ferrous tab PO 12/14/24 01/02/25 Hi story fumarate 28 mg-folic acid 800 mcg tablet () Allergies Allergy/AdvReac Type Severity Reaction Status Date / Time No Known Allergies Allergy Verified 01/06/25 08:42 OB Exam Physical Exam Vital signs: Temp Pulse Resp BP 98.1 F 68 16 156/93 H 01/06/25 08:49 01/06/25 09:50 01/06/25 08:49 01/06/25 09:50 Narrative: Vital signs are stable afebrile. Normal heart rate and rhythm. Lungs clear no wheezes. Gravid abdomen. Gynecoid pelvis. Baseline ultrasound today showed fetus in transverse position. I did a bedside ultrasound and also Perfecto's and found that this verified the ultrasound. heart rate category 1 with accelerations and moderate variability. No contractions on the monitor. Cervix was long closed and posterior. presentation out of the pelvis Detailed Labor and Delivery Exam Dilation (cm): closed Effacement (%): thick Cervix position: mid station: -4 Consistency: soft Presentation: Transverse Cervical ripeness score: 2 Membranes: intact monitor accelerations: 15x15 monitor decelerations: None assisted variability: Moderate (11-25) Contraction frequency (min): occ Tachysystole: No Contraction intensity: Mild OB Results Labs 01/06/25 08:26 01/06/25 09:10 Labs: Short CBC 01/06/25 Range/Units 08:26 WBC 10.1 (3.6-11.0) Thou/mm3 Hgb 13.7 (12.0-16.0) g/dL Hct 39.0 (36.0-46.0) % Plt Count 251 (140-440) Thou/mm3 BMP 01/06/25 09:10 Sodium 138 Potassium 4.1 Chloride 111 H Carbon Dioxide 17.9 L BUN 10 Creatinine 0.5 L Glucose 88 Calcium 8.7 Liver Function 01/06/25 Range/Units 09:10 Total Bilirubin 0.5 (0.3-1.2) mg/dL AST 17 (0-34) U/L ALT 36 (10-49) U/L Alkaline Phosphatase 184 H (46-116) U/L Albumin 4.0 (3.5-5.0) gm/dL OB Assessment & Plan Assessment and Plan (1) Normal labor and delivery: Status: Acute Additional Plan Induction method: none Plan: consult MD mcadams
[2025-01-06 10:08] LABS: Bacteria,Urine Rare; Bilirubin,Urine Negative (Negative); Blood,Urine Negative (Negative); Clarity,Urine Turbid (Clear/Hazy); Color,Urine Yellow (Lt Yel-Yel); Glucose, Urine Negative (Negative); Ketones,Urine Negative (Negative); Leukocyte Esterase,Urine Positive (Negative); Nitrite,Urine Negative (Negative); Protein,Urine Trace (Neg - Trace); RBC,Urine 7 /hpf (0-3); Specific Gravity,Urine 1.029 (1.001-1.035); Squamous Epithelial Cell,Urine 23 /hpf (0-5); Urobilinogen,Urine Negative mg/dL (0.0-1.0); WBC,Urine 12 /hpf (0-5)
[2025-01-06 10:13] LABS: Creatinine,Random Urine 145 mg/dL (30-125); Protein Total, Random Urine 36 mg/dL (1-14)
[2025-01-06 10:19] LABS: Fibrinogen 535 mg/dL (175-375); INR 0.9 (0.9-1.3); Partial Thromboplastin Time 27.5 Seconds (22.0-36.0); Prothrombin Time 10.1 Seconds (9.0-12.2)
--- NOTE | 2025-01-06 10:26 | PC.NURSE ---
[id number]. Margo CNM notified of transverse presentaiton- CNM at bedside, SVE and Aby performed. Bedside US performed by CNM confirming presentation transverse.CNM to call Sade MARISCAL. Per Sade MARISCAL called Primary C/S for Tranverse Presentation
--- NOTE | 2025-01-06 18:02 | ESPR_ITS ---
Addendum Progress Note Addendum Date of report being addended: 01/06/25 Narrative: The patient is a 29-year-old with all care uncomplicated with Ekaterina Aragon CNM who was admitted this morning for scheduled induction of labor for obesity and borderline elevated blood pressures. Patient is 39-6/7 weeks . She had an ultrasound performed revealing a transverse lie of the baby. Ekaterina consulted me and patient is now consented for a primary low- transverse section. The patient was consented with her at bedside for a . She understands the risk of a including bleeding, infection, blood transfusion, damage to bowel, bladder, blood vessels, and other organs. Prolonged hospital stay and further surgery should any complications occur. All questions were answered and all consents were signed. Of note patient's BMI is 34 and she has a large pannus. She will need to be taped for and a lot of education on how to take care of her wound .
[2025-01-06] MEDS: ceFAZolin/D5W 2 GM IV 2 GM/100 ML BAG IV (18:16)
[2025-01-06] MEDS: FAMOTIDINE INJ 10 MG/ML VIAL 2 ML 20 MG IV (18:16)
[2025-01-06] MEDS: OXYTOCIN in NS 20 units 20 UNIT/1,000 ML BAG 125 UNIT IV (19:55)
--- NOTE | 2025-01-06 20:22 | PD.LDDELS ---
Data ([place]) Data Hx Section: No Reason for Primary Section: Transverse lie Maternal Blood Type: O Pos Rubella Titre: Positive RPR: Non-reactive Labs: Negative: RPR, Hepatitis B, HIV, Chlamydia, Gonorrhea and Group Beta Strep : 1 Term: 0 : 0 Livin Abortions: Spontaneous & Theraputic: 0 Delivery Data ([place]) Labor Data Induction/Augmentation Agent: None ROM date: 01/06/25 ROM time: 18:52 Amniotic membrane rupture type: Artificial Amniotic fluid description: Clear Delivery Data EDC: 01/07/25 EDC calculated by:: LMP/early US confirmation Date of arrival to unit: 01/06/25 Time of arrival to unit: 08:22 delivery date: 01/06/25 [place] delivery time: 18:52 Gestational age (weeks): 39 Gestational age (days): 6 Placenta delivery date: 01/06/25 Placenta delivery time: 18:55 Delivered by: Elvira Stuart (OB Clinic) Delivery nurse: Dorothy Bell nurse: Ricardo Allied Health Professional at delivery: No Support person(s) at delivery: FOB Delivery Method Delivery: Delivery Type: Primary Presentation: Transverse Lie Anesthesia Type Primary Anesthesia: Spinal Secondary Anesthesia: None Delivery Room Medications Intrapartum Medications: Antibiotics Other Intrapartum Medications: No Post Delivery Medications: Tocolytics Placenta Placenta Delivery: Manual Placenta Cultures Obtained: No Placenta Sent for Examination: No Cord Sample: Cord Blood Obtained EBL Estimated blood loss (ml): 500 Umbilical Cord Umbilical Vessels: 3 Nuchal Cord: x2 Body Cord: None Additional Procedures See op report for procedure Complications Complications: None Data ([place]) Data [place]'s gender: Female weight (gms): 2980 kg 1 minute: 9 5 minutes: 9
--- NOTE | 2025-01-06 20:32 | PD.GYNPROC ---
Operative Note - [facility] Procedure Date of procedure: 01/06/25 Procedure Performed: Primary low-transverse section Indication: 29-year-old G1, P0 all care uncomplicated with Ekaterina Aragon CNM presented for an induction of labor this morning and the baby was found to be a transverse lie. Patient was consented for a primary low-transverse section she is 39-6/7 weeks Pre-Op diagnosis: 1. Intrauterine at 39-6/7 weeks 2. Transverse lie presentation 3. Maternal BMI of 34 Post-Op diagnosis: Same Anesthesia type: Spinal Procedure description: After obtaining informed consent, the patient was brought back to the operating room and spinal anesthesia administered. She was then prepped and draped in a normal sterile fashion in the dorsal supine position with a leftward tilt. A Alexander catheter was inserted into the patient's bladder. The patient was given 2 g of Ancef by anesthesia. A Pfannenstiel skin incision was made with a scalpel and carried down to the underlying fascia. The fascia was incised in the midline, and the fascial incision extended laterally using Mcadams scissors. The superior aspect of the fascia was grasped with Zoraida clamps and the underlying rectus muscles dissected off using blunt and sharp dissection. This was repeated in the inferior aspect the incision. The rectus muscles were in the midline and the peritoneum was picked up and entered sharply with Metzenbaums. This was extended superiorly and inferiorly with good visualization of the bladder. The bladder blade was inserted and the uterus was incised in low transverse fashion using a scalpel. The uterine incision was extended laterally using blunt dissection with the surgeon's fingers. The bag of alicea was ruptured, and clear fluid was noted. The bladder blade was removed, and the baby was delivered atraumatically in a vertex presentation. The cord was clamped and cut after waiting 30 seconds and the was handed off to the waiting pediatric staff. Cord blood was collected and Cord gases were saved. The placenta was then manually removed and the uterus was exteriorized and cleared of all clots and debris. The uterine incision was repaired with 0 Monocryl in a running locked fashion. Excellent hemostasis was noted. Of note the patient's left ovary and left fallopian tube could not be identified and there was a large amount of adhesions involving the large bowel to the left adnexa. The right ovary was identified enlarged and noted to be polycystic in appearance. The right fallopian tube appeared to be normal. The uterus was then returned to the patient's abdominal cavity and copious irrigation carried out with warm normal saline. The uterine incision was reexamined and noted to be hemostatic. After ensuring the rectus muscles were hemostatic, these were reapproximated the midline using a running suture of 0 Monocryl. The fascia was closed with 0 Vicryl in a running fashion. The subcutaneous tissues were irrigated and found to be hemostatic. These were reapproximated using a running suture of 3-0 plain. The skin was closed with a subcuticular suture of 4-0 Monocryl. The patient tolerated the procedure well, sponge lap needle and instrument counts were correct x 2. The patient went to the recovery area awake and in stable condition. Pathology was none. Applications were none. Fluids: crystalloid Fluid amount (mL): 3,000 Urine output (mL): 100 Specimen: none Implants: None Estimated blood loss (ml): 500 Findings: Liveborn female in a transverse presentation delivered vertex with a loose nuchal cord x 2 and a very thin umbilical cord noted. Apgars were 9 and 9 weight was 2980 g. The placenta was complete spontaneous grossly normal patient's right ovary was noted to be enlarged possible polycystic. Her fallopian tube on the right side was normal the left fallopian tube could not be identified neither could be neither could the left ovary. There was bowel stuck on the left side behind the left posterior lower uterine segment. The ovary could have been in this adhesion. The patient has probable endometriosis involving the left adnexa. Complications: none Surgical staff Operation Date: 01/06/25 18:00 Case Staff MIL[employer]CRA[employer] DESIGNER: Addi Covington personal care assistant: Radha Moon OBT Diagnosis Discharge Diagnosis (1) Term delivered: Status: Acute (2) Malpresentation of fetus: Status: Acute Problem List Completed Was Problem List Reviewed/Reconciled?: Yes (2) Malpresentation of fetus Qualifiers: malpresentation type: transverse lie Fetus number: single or unspecified fetus Qualified Code(s): O32.2XX0 - Maternal care for transverse and oblique lie, not applicable or unspecified
[2025-01-06] MEDS: ACETAMINOPHEN 325 MG TABLET 650 MG PO (20:40)
[2025-01-06] MEDS: IBUPROFEN TAB 400 MG TABLET 800 MG PO (21:37)
[2025-01-07] MEDS: ONDANSETRON INJ 2 MG/ML INJ 2 ML 4 MG IVP (05:06)
[2025-01-07] MEDS: KETOROLAC INJ 30 MG/ML VIAL IVP ×4 (05:06→23:48)
[2025-01-07] MEDS: RINGERS LACTATED 1000 ML 1,000 ML 100 ML IV (05:16)
[2025-01-07 05:30] VITALS: BP 122/74; PULSE 58; RESP 19; TEMP 36.8; O2SAT 94
[2025-01-07 06:58] LABS: Basophils % (Auto) 0 % (0-2.5); Eosinophils % (Auto) 0 % (0-10); Hematocrit 34.9 % (36.0-46.0); Hemoglobin 11.9 g/dL (12.0-16.0); Immature Granulocytes % (Auto) 0 % (0-0); Immature Granulocytes Auto 0.02 Thou/mm3 (0.00-0.00); Lymphocytes # (Auto) 1.7 Thou/mm3 (1.0-4.8); Lymphocytes % (Auto) 17 % (10-50); Mean Corpuscular HGB Conc 34.1 g/dl (31.0-37.0); Mean Corpuscular Hemoglobin 30.4 pg (25.0-35.0); Mean Corpuscular Volume 89 fL (80-100); Monocytes # (Auto) 0.6 Thou/mm3 (0.0-0.8); Monocytes % (Auto) 5 % (0-12); Neutrophils # (Auto) 8.1 Thou/mm3 (1.8-7.7); Neutrophils % (Auto) 78 % (37-80); Nucleated Red Blood Cell % 0 /100 WBC (0); Platelet Count 211 Thou/mm3 (140-440); RDW Standard Deviation 42.8 fL (36.4-46.3); Red Blood Count 3.92 Miln/mm3 (4.00-5.20); White Blood Count 10.4 Thou/mm3 (3.6-11.0)
--- NOTE | 2025-01-07 07:45 | PD.LDPPPRG ---
Subjective Subjective Interval history: Delivery type: for transverse lie Patient doing well this morning. No acute complaints. Ambulating, tolerating p.o. and voiding without difficulty. HTN/Pre-Eclampsia screen: No chest pain, shortness of breath, headache, visual changes, epigastric or right upper quadrant pain. Breast-feeding, lochia diminishing. Bowel: Flatus+/ BM+ Exam Vital Signs Temp Pulse Resp BP Pulse Ox O2 Del Method 98.2 F 58 L 19 122/74 94 L Room Air 01/07/25 05:30 01/07/25 05:30 01/07/25 05:30 01/07/25 05:30 01/07/25 05:30 01/07/25 05:30 Constitutional Constitutional: no acute distress Routine HEENT Exam Head: Present normocephalic and atraumatic Eye: Present EOMI and PERRL ENT: Present mucous membranes moist Routine Neck Exam Neck: Present supple and trachea midline Routine Respiratory Exam Respiratory: Present chest non-tender, lungs clear, normal breath sounds and no resp distress Routine Cardiovascular Exam Cardiovascular: Present RRR Routine Abdominal Exam Abdominal: Present soft and normoactive bowel sounds Routine Extremities Exam Extremities: Present full ROM Routine Skin Exam Skin: Present intact, dry and warm Routine Neurological Exam Neurological: Present alert, oriented X3 and CN II-XII intact Routine Psychiatric Exam Psychiatric: Present normal affect and normal thought process Objective Labs 01/07/25 06:12 01/06/25 09:10 Labs: Laboratory Results - last 24 hr 01/06/25 01/06/25 01/06/25 08:26 09:10 09:20 WBC 10.1 RBC 4.49 Hgb 13.7 Hct 39.0 MCV 87 MCH 30.5 MCHC 35.1 RDW Std Deviation 40.8 Plt Count 251 Neut % (Auto) 62 Lymph % (Auto) 31 Mcintosh % (Auto) 6 Eos % (Auto) 1 Baso % (Auto) 0 Neut # (Auto) 6.2 Lymph # (Auto) 3.1 Mcintosh # (Auto) 0.6 Eos # (Auto) 0.1 Baso # (Auto) 0.0 Immature Gran # (Auto) 0.03 H Absolute Nucleated RBC 0.00 Immature Gran % 0 Nucleated RBC % 0 PT 10.1 INR 0.9 APTT 27.5 Fibrinogen 535 H Sodium 138 Potassium 4.1 Chloride 111 H Carbon Dioxide 17.9 L Anion Gap 9 BUN 10 Creatinine 0.5 L Estim Creat Clear Calc 184.2 eGFR > 60 BUN/Creatinine Ratio 20 Glucose 88 Calculated Osmolality 273 L Uric Acid 3.9 Calcium 8.7 Corrected Calcium 8.7 Total Bilirubin 0.5 AST 17 ALT 36 Alkaline Phosphatase 184 H Total Protein 6.6 Albumin 4.0 Globulin 2.6 Albumin/Globulin Ratio 1.5 Ur Collection Type Voided Urine Color Yellow Urine Clarity Turbid A Urine pH 6.0 Ur Specific [place] 1.029 Urine Protein Trace Urine Glucose (UA) Negative Urine Ketones Negative Urine Blood Negative Urine Nitrite Negative Urine Bilirubin Negative Urine Urobilinogen (Auto) Negative Ur Leukocyte Esterase Positive Urine RBC 7 H Urine WBC 12 H Ur Squamous Epith Cells 23 H Urine Bacteria Rare Ur Random Creatinine 145 H U Random Total Protein 36 H Syphilis Serology Nonreactive Blood Type O Positive Antibody Screen NEGATIVE Blood Bank Wristband ID Yes 01/07/25 06:12 WBC 10.4 RBC 3.92 L Hgb 11.9 L Hct 34.9 L MCV 89 MCH 30.4 MCHC 34.1 RDW Std Deviation 42.8 Plt Count 211 D Neut % (Auto) 78 Lymph % (Auto) 17 Mcintosh % (Auto) 5 Eos % (Auto) 0 Baso % (Auto) 0 Neut # (Auto) 8.1 H Lymph # (Auto) 1.7 Mcintosh # (Auto) 0.6 Eos # (Auto) 0.0 Baso # (Auto) 0.0 Immature Gran # (Auto) 0.02 H Absolute Nucleated RBC 0.00 Immature Gran % 0 Nucleated RBC % 0 PT INR APTT Fibrinogen Sodium Potassium Chloride Carbon Dioxide Anion Gap BUN Creatinine Estim Creat Clear Calc eGFR BUN/Creatinine Ratio Glucose Calculated Osmolality Uric Acid Calcium Corrected Calcium Total Bilirubin AST ALT Alkaline Phosphatase Total Protein Albumin Globulin Albumin/Globulin Ratio Ur Collection Type Urine Color Urine Clarity Urine pH Ur Specific [place] Urine Protein Urine Glucose (UA) Urine Ketones Urine Blood Urine Nitrite Urine Bilirubin Urine Urobilinogen (Auto) Ur Leukocyte Esterase Urine RBC Urine WBC Ur Squamous Epith Cells Urine Bacteria Ur Random Creatinine U Random Total Protein Syphilis Serology Blood Type Antibody Screen Blood Bank Wristband ID Assessment & Plan Problem List (1) Term delivered: Status: Acute (2) Malpresentation of fetus: Status: Acute (3) delivery delivered: Status: Acute Assessment and plan: 1. Continue routine /post-op care 2. Labs reviewed, cbc appropriate 3. Remove dressing/Alexander 4. Encourage to ambulate, shower 5. Encourage PO intake, breast feeding Time Spent With Patient Time: Total time spent is greater than 50% in coordination of care (as documented) at patient's floor/unit and/or counseling patient:
[2025-01-07 08:00] VITALS: BP 127/77; PULSE 61; RESP 18; TEMP 36.8; O2SAT 97
[2025-01-07] MEDS: SODIUM CHLORIDE 0.9% 500 ML 500 ML 999 ML IV (08:25)
[2025-01-07] MEDS: SIMETHICONE 80 MG CHEW PO ×2 (09:33→17:48)
[2025-01-07] MEDS: ACETAMINOPHEN 325 MG TABLET 650 MG PO (09:33)
[2025-01-07 11:59] VITALS: BP 134/90; PULSE 60; RESP 17; TEMP 36.7; O2SAT 97
[2025-01-07 15:17] VITALS: BP 119/76; PULSE 62; RESP 18; TEMP 36.8; O2SAT 97
[2025-01-07 20:42] VITALS: BP 132/87; PULSE 70; RESP 16; TEMP 36.6; O2SAT 97
[2025-01-08 03:37] VITALS: BP 128/81; PULSE 65; RESP 16; TEMP 36.8; O2SAT 95
[2025-01-08] MEDS: KETOROLAC INJ 30 MG/ML VIAL IVP (05:49)
[2025-01-08 08:00] VITALS: BP 136/82; PULSE 76; RESP 18; TEMP 36.8; O2SAT 96
--- NOTE | 2025-01-08 08:44 | ESPR_ITS ---
Subjective Subjective Interval history: Patient is a 29-year-old G 1P now 1001 postoperative day #2 status post primary for transverse lie. Patient is resting comfortably in bed. Her pain is controlled. The baby is at bedside as is the father of the baby. She is ready to go home she denies heavy vaginal bleeding fevers chills her vital signs and hemoglobin are stable. Exam Vital Signs Temp Pulse Resp BP Pulse Ox O2 Del Method 98.3 F 65 16 128/81 95 Room Air 01/08/25 03:37 01/08/25 03:37 01/08/25 03:37 01/08/25 03:37 01/08/25 03:37 01/08/25 03:37 Narrative Exam Fundus is firm nontender patient has a significant pannus. Incision is clean dry and intact extremities showed no significant edema or erythema. Objective Labs 01/07/25 06:12 01/06/25 09:10 Assessment & Plan Problem List (1) Term delivered: Status: Acute Assessment and plan: Discharge instructions given for . Patient is breast-feeding. Follow- up with breast-feeding clinic for questions or concerns. (2) Malpresentation of fetus: Status: Acute (3) delivery delivered: Status: Acute Assessment and plan: Postop day #2. Discharge instructions given. Pain medications prescribed. Time Spent With Patient Time: Total time spent is greater than 50% in coordination of care (as documented) at patient's floor/unit and/or counseling patient: Time with patient: less than 15 minutes
--- NOTE | 2025-01-08 08:47 | ESDS_ITS ---
DS: Providers Provider Date of admission: 01/06/25 07:50 Primary care physician: Physician No Primary/Family Admitting Provider: Ekaterina Aragon CNM Attending Provider on Admission: Escobar العلي MD Consults: 01/06/25 20:29 Referral Routine Comment: Attending Provider on DC: Elvira Stuart MD (OB Clinic) Discharging Provider: Elvira Stuart MD (OB Clinic) Anticipated date of discharge: 01/08/25 DS: Diagnosis Discharge Diagnosis (1) delivery delivered: Status: Acute Assessment & Plan: Postop instructions given. (2) Obesity (BMI 30.0-34.9): Status: Acute Assessment & Plan: Wound care discussed. Breast-feeding encouraged. After 6 weeks moderate exercise and attention to diet encouraged. Problem List Completed Was Problem List Reviewed/Reconciled?: Yes Summary/Hosp Course Brief History: 29-year-old 1 para 0 for induction of labor. Patient has been followed at [facility] in [facility] medical OB clinic. Patient's first visit is [facility] was 7 weeks. Her records are in the chart. Last. April 02, 2024. Estimated due date January 07, 2025. Patient was scheduled for induction because of elevated blood pressures and obesity. PIH labs have been normal. Patient is O+, antibody screen negative, RPR nonreactive, rubella immune, hepatitis B negative, hep C negative, HIV neg ative, GC and Chlamydia were negative. 1 hour was negative. Her A1c was 5.1. Patient had several anatomy scans and MFM scans. Her first MFM appointment was June 30 at 12 weeks 6 and this confirmed dates and showed normal NT scan. Patient is 20 weeks scan the fetus had a small VSD that had resolved. Patient is GBS negative. Denies social habits. Denies surgery. And chronic illness. On presentation, an ultrasound was performed as the cervix was closed and a position was high. A transverse lie was diagnosed. Patient underwent a primary delivered by Dr Stuart 01/06/2025. Please see op report for further details. Patient's postoperative course was uncomplicated. She was discharged home postoperative day #2 in stable condition. On discharge patient was ambulating, tolerating a general diet, had minimal lochia, was working on breast-feeding, was passing flatus and having bowel movements. Alert discharge instructions and medications were given. Peripartum Data Delivery Method: Low Transverse Procedures: Procedures Operation Date: 01/06/25 18:00 Actual Procedure Side Surgeon p in OB Not Applicable Elvira Stuart (OB Clinic)MD complications: none Status at Discharge Functional status at discharge: independent ambulation Overall status at discharge: patient is progressing back to baseline Time Spent with Patient Time attestation: Total time spent providing and/or coordinating discharge services: Time spent: Less than 30 minutes Specific discharge activities: No heavy lifting, strenuous exercise for 6 weeks. Pelvic rest x 6 weeks. No tampons intercourse course douching x 6 weeks. Exam Vital Signs Temp Pulse Resp BP Pulse Ox O2 Del Method 98.3 F 65 16 128/81 95 Room Air 01/08/25 03:37 01/08/25 03:37 01/08/25 03:37 01/08/25 03:37 01/08/25 03:37 01/08/25 03:37 Narrative Exam Fundus firm nontender. Patient has a significant pannus. Incisions clean dry and intact. Extremities show no edema or erythema. Discharge Plan Plan Patient Disposition: HOME (Self Care) Disposition Comment: Stable Patient condition on transfer: Stable Prescriptions/Referrals Prescriptions/Med Rec: New hydrocodone-acetaminophen 5-325 mg Tablet 2 tab PO Q6HR MDD 6 PRN (Reason: Patient rated pain 9 to 10) Qty: 30 0RF ibuprofen 400 mg Tablet 800 mg PO Q8HR PRN (Reason: Pain Scale 4-6 (Moderate) Qty: 60 0RF Discontinued aspirin 81 mg tablet,chewable Patient Comments: CHEW 1 TABLET BY MOUTH EVERY DAY No Action PNV cmb#95-ferrous fumarate-FA [] 28 mg iron- 800 mcg tablet PO Patient Comments: TAKE 1 TABLET BY MOUTH EVERY DAY Referrals: No Primary/Family,Physician [Primary Care Provider] - Patient/Caregiver Discharge Instructions Discharge Activity: activity as tolerated Other Discharge Activity Instructions:: No heavy lifting, strenuous exercise x 6 weeks. Pelvic rest x 6 weeks. No intercourse tampons douching bathtubs x 6 weeks. Other Discharge Diet Instructions: General Diet as tolerated Education Materials: After Delivery Half Way Concerns, Breast Care After , : Caring for Yourself, C Section Dc Print Language: Samoan Activity Restrictions/Additional Instructions: Call for heavy vaginal bleeding, fevers 100.4 ?F or higher, or severe depression. Follow-up with Ekaterina in clinic in 1 week. Stand Alone Forms: Liliana Award Info., Patient Portal Info Letter Discharge Order Discharge Orders: Discharge (Routine); Ordered 01/08/25 Ordered By: Elvira Stuart (OB Clinic) Planned Discharge Date 01/08/25
[2025-01-08] MEDS: HYDROcodone/APAP 5/325 TABLET 1 TAB PO (12:05)
== END 2025-01-08 14:37 | disposition home or self-care (01) | DRG 540 ==
LOC: S4SX 17:59 → S4NX 18:42
PROVIDERS: Obstetrics & Gynecology; Admitting Provider Advanced Practice Midwife; Visit Provider Obstetrics & Gynecology
PROC: 10D00Z1 Extraction of Products of Conception, Low, Open Approach (ICD-10-PCS; CPT 59514; principal; 2025-01-06 07:00)
DX: O13.4 Gestational [pregnancy-induced] hypertension without significant proteinuria, complicating childbirth (principal); Z37.0 Single live birth; Z3A.39 39 weeks gestation of pregnancy; O99.214 Obesity complicating childbirth; O32.2XX0 Maternal care for transverse and oblique lie, not applicable or unspecified; O69.81X0 Labor and delivery complicated by cord around neck, without compression, not applicable or unspecified
CPT/HCPCS: 36415; 59409; 76815; 80053; 81001; 82570; 84156; 84550; 85025; 85384; 85610; 85730; 86780; 86850; 86900; 86901; 94762; J0689; J1885; J2274; J2371; J2405; J2590; J3010; J3490; J7040; J7120; A9270; J2270

== ENCOUNTER 2025-01-12 09:38 | Outpatient (AMB) | payer MEDICAID, SELFPAY ==
--- NOTE | 2025-01-12 10:12 | AMBOBPPN_ITS ---
Vital Signs 01/12/25 10:13 Height 1.64 m Height Method Stated Weight 87.6 kg Weight Measurement Method Standing Scale BMI 32.6 BP 142/98 H Blood Pressure Source Automatic Cuff Blood Pressure Location Left Upper Arm Position Sitting Respiration 14 Pulse 76 Pulse Source Monitor Temp 97.3 F Temp Source Oral Pulse Oximetry (%) 97 Oxygen Delivery Method Room Air Allergies/Home Meds Allergies & Medications Allergies No Known Allergies Allergy (Verified 01/12/25 10:14) Medication Reconciliation vit no.95-ferrous fumarate 28 mg-folic acid 800 mcg tablet () tab PO 12/14/24 [History Confirmed 01/12/25] hydrocodone 5 mg-acetaminophen 325 mg tablet 2 tab PO Q6HR PRN Patient rated pain 9 to 10 #30 tabs 01/08/25 [Rx Confirmed 01/12/25] acetaminophen 325 mg tablet (Tylenol) 325 mg PO QID PRN pain 30 days #60 tabs 01/12/25 [Rx] ibuprofen 400 mg tablet 800 mg (2 x 400 mg) PO Q8HR PRN Pain Scale 4-6 (Moderate #60 tabs 01/12/25 [Rx] Intake Visit Data Collection New Patient or Established: Established Patient (seen at [facility] within 3 years) Reason for Visit:: C SECTION FOLLOW UP Seen by Clinical Staff ONLY (RN/MA): No Lpn Rn Hospice Required: No Do You Feel Safe at Home: Yes Authorities Contacted: N/A PCP or OBGYN visit in last 3 months: Yes Hx Now: No Are you currently on any form of Control: No Pain Present Currently: No Pain Scale Used: Wright-Juarez/Numerical Pain scale:: 0 Smoking Status Smoking Status: 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 Past Medical History: No Hx Neurological Disorders, No Hx Breast Cancer, No Hx Cardiac Disorders, No Hx Hypertension (FATHER), No Hx Blood Disorders, No Hx Anemia, No Hx Gastrointestinal Disorders, No Hx Renal Disease, No Hx Diabetes Mellitus Type 1 and No Hx Diabetes Mellitus Type 2 Questionnaires Covid-19 Vaccine Questionnaire Has patient been vacinated for Covid-19 Have you been vacinated for Covid-19: Yes Social History Living Situation History Lives With: Family Housing: Apartment Tobacco History Smoking Status: 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 Second Hand Smoke Exposure: No Alcohol History Alcohol Intake: Never Domestic Abuse History Do You Feel Safe at Home: Yes EPDS - PP Depression Screening [place] Pospartum Depression Screen I have been able to laugh and see the funny side of things: (0) As much as I always could I have looked forward with enjoyment to things: (0) As much as I ever did I have blamed myself unnecessarily when things went wrong: (0) No, never I have been anxious or worried for no good reason: (0) No, not at all I have felt scared or panicky for no very good reason: (0) No, not at all Things have been getting on top of me: (0) No, I have been coping as well as ever I have been so unhappy that I have had difficulty sleeping: (0) No, not at all I have felt sad or miserable: (0) No, not at all I have been so unhappy that I have been crying: (0) No, never The thought of harming myself has occurred to me: (0) Never Total Score: EPDS Score: Referral is indicated for score of 9 or more, suicidal, or if provider believes patient is depressed regardless of score.: 0 EPDS completed yes HPI Interval History: 29-year-old 1 para 1 for 1 week . Patient had a primary section January 06, 2025. For malpresentation. The baby was transverse lie. Epidural for anesthesia. Patient had a baby girl. The baby weighed 6 pounds 9 ounces. Patient is breast-feeding. Patient reports she feels tired but has really good help at home. the father the baby is very involved. Denies any signs and symptoms of infection. Reports good compliance with wound care and she is keeping it clean and dry. Denies any discharge from the wound. Patient is voiding and passing gas and having bowel movements. Taking Tylenol and ibuprofen for discomfort. 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 perineum intact, small lochia,rubra. negative homans . VSS, afebrile. incision, clear, dry, no redness General Limitations: no limitations General Appearance: alert, in no apparent distress, comfortable, cooperative, healthy appearing, well developed and well groomed Head Head exam: atraumatic, normocephalic and normal inspection Chest Chest inspection: Present normal inspection and symmetric chest wall rise Resp Respiratory exam: Present normal lung sounds bilaterally Card Cardiovascular exam: Present regular rate, normal rhythm and normal heart sounds Abdominal Abdominal exam: Present soft, normal bowel sounds and scar (low transeverse) Psych Psychiatric exam: Present normal affect and normal mood Office Procedures OB Clinic LOC & Office Proc's Nursing/Assessment Patient Status: Established Patient OB Clinic Nursing Assessment: Medication Reconciliation, Update PMH in EMR and Vital Signs OB Clinic Coordination of Care: Complex Care and Chronic Disease 1-5, Consent,records obtained, informed consent, Education Simp Pt/Fam, Results/Orders obtained and Staff clarify orders Established Patient Charge Established Patient Point Assignment: 90 Established Patient Point Charge: EP Level 3 (80-115) Post Follow-up Visit Post Follow up Visit: Yes Assessment & Plan Diagnosis / Problem List (1) Morbid obesity with BMI of 40.0-44.9, adult: Status: Acute (2) Postoperative complication of section: Status: Acute Plan Reviewed wound care with patient. Continue to keep incision clean and dry. Okay to use maternity garment for support. I refilled ibuprofen 800 every 6 hours. And I added Tylenol 325 patient can take 1 to 2 tablets every 6 hours. No heavy lifting. Increase rest. Increase fluids. Continue vitamins. I discussed breast-feeding and position changes with patient. Discussed contraception. Patient was undecided. Return in 2 weeks for visit Care Reviewed delivery summary and any complications: Yes Uterus involuted to: below umbilicus Screened for depression: Yes Discussed family planning & contraception: Yes Contraception planned: barrier Counseling on safe resumption of sexual activity: Yes Counseling on gradual excercise: Yes Discussed and concerns (describe), provided support: Yes Referred to insurance plan specialist: No Counseled on good nutrition, hydration, and self care: Yes Reviewed vaccine status: Yes Chronic & current problems reconciled on problem list: Yes Infant care discussed; questions answered: feeding and sleep Follow up: routine/prn (2 week )
[2025-01-12 10:13] VITALS: BP 142/98; PULSE 76; RESP 14; TEMP 36.3; O2SAT 97; BMI 32.6
== END 2025-01-12 10:05 | disposition home or self-care (01) ==
LOC: HODSOBC 09:38
PROVIDERS: Supervising Provider Obstetrics & Gynecology; Visit Provider Advanced Practice Midwife
DX: Z39.2 Encounter for routine postpartum follow-up (principal); Z39.1 Encounter for care and examination of lactating mother; O99.215 Obesity complicating the puerperium; E66.01 Morbid (severe) obesity due to excess calories
CPT/HCPCS: 59430; 99213; G0463

== ENCOUNTER 2025-01-31 14:17 | Outpatient (AMB) | payer MEDICAID, SELFPAY ==
[2025-01-31 14:49] VITALS: BP 128/77; PULSE 72; RESP 16; TEMP 36.8; O2SAT 98; BMI 31.2
--- NOTE | 2025-01-31 14:49 | AMBOBPPN_ITS ---
Vital Signs 01/31/25 14:49 Height 1.64 m Height Method Stated Weight 84.028 kg Weight Measurement Method Standing Scale BMI 31.2 BP 128/77 Blood Pressure Source Automatic Cuff Blood Pressure Location Right Upper Arm Position Sitting Respiration 16 Pulse 72 Pulse Source Monitor Temp 98.2 F Temp Source Oral Pulse Oximetry (%) 98 Oxygen Delivery Method Room Air Allergies/Home Meds Allergies & Medications Allergies No Known Allergies Allergy (Verified 01/31/25 14:50) Medication Reconciliation vit no.95-ferrous fumarate 28 mg-folic acid 800 mcg tablet () tab PO 12/14/24 [History Confirmed 01/31/25] Intake Visit Data Collection New Patient or Established: Established Patient (seen at [facility] within 3 years) Reason for Visit:: FOLLOW UP Seen by Clinical Staff ONLY (RN/MA): No Rn Delivery Required: No Do You Feel Safe at Home: Yes Authorities Contacted: N/A PCP or OBGYN visit in last 3 months: Yes Hx Now: No Are you currently on any form of Control: No Pain Present Currently: No Pain Scale Used: Wright-Juarez/Numerical Pain scale:: 0 Smoking Status 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 Status: 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 Past Medical History: No Hx Neurological Disorders, No Hx Breast Cancer, No Hx Cardiac Disorders, No Hx Hypertension (FATHER), No Hx Blood Disorders, No Hx Anemia, No Hx Gastrointestinal Disorders, No Hx Renal Disease, No Hx Diabetes Mellitus Type 1 and No Hx Diabetes Mellitus Type 2 Questionnaires Covid-19 Vaccine Questionnaire Has patient been vacinated for Covid-19 Have you been vacinated for Covid-19: Yes Social History Living Situation History Lives With: Family Housing: Apartment Tobacco History Smoking Status: 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 Second Hand Smoke Exposure: No Alcohol History Alcohol Intake: Never Domestic Abuse History Do You Feel Safe at Home: Yes EPDS - PP Depression Screening Sheldon Pospartum Depression Screen I have been able to laugh and see the funny side of things: (0) As much as I always could I have looked forward with enjoyment to things: (0) As much as I ever did I have blamed myself unnecessarily when things went wrong: (0) No, never I have been anxious or worried for no good reason: (0) No, not at all I have felt scared or panicky for no very good reason: (0) No, not at all Things have been getting on top of me: (0) No, I have been coping as well as ever I have been so unhappy that I have had difficulty sleeping: (0) No, not at all I have felt sad or miserable: (0) No, not at all I have been so unhappy that I have been crying: (0) No, never The thought of harming myself has occurred to me: (0) Never Total Score: EPDS Score: Referral is indicated for score of 9 or more, suicidal, or if provider believes patient is depressed regardless of score.: 0 EPDS completed yes HPI Interval History: 29 yo , primary c/s 01/06/25. baby girl. 6-9. breast and bottle. IOL for elevated BMI and gestational hypertention. Happy, no depression, father involved. no interval complaints. denies PIH complaints. denies s/s of mastitis or wound infection. 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 negative homans sign. 2+DTR, no swelling. fundus 3 below umb, low transverse incision intact, well healed, no s/s of infection, patient has mild redness, under panus, using powder. breast soft, no mastitis General Limitations: no limitations General Appearance: alert, in no apparent distress, comfortable, cooperative, healthy appearing, well developed and well groomed Head Head exam: atraumatic, normocephalic and normal inspection Chest Chest inspection: Present normal inspection and symmetric chest wall rise Resp Respiratory exam: Present normal lung sounds bilaterally Card Cardiovascular exam: Present regular rate, normal rhythm and normal heart sounds Abdominal Abdominal exam: Present soft and normal bowel sounds Psych Psychiatric exam: Present normal affect and normal mood Office Procedures OB Clinic LOC & Office Proc's Nursing/Assessment Patient Status: Established Patient OB Clinic Nursing Assessment: Medication Reconciliation, Update PMH in EMR and Vital Signs OB Clinic Coordination of Care: Complex Care and Chronic Disease 1-5, Consent,records obtained, informed consent, Education Simp Pt/Fam, Lab and Imaging orders, Results/Orders obtained and Staff clarify orders Established Patient Charge Established Patient Point Assignment: 105 Established Patient Point Charge: EP Level 3 (80-115) Assessment & Plan Diagnosis / Problem List (1) Postoperative complication of section: Status: Acute (2) Encounter for care and examination after delivery: Status: Acute Care Reviewed delivery summary and any complications: Yes Uterus involuted to: 3 below Perineal / incision healing noted: Yes Screened for depression: Yes Depression counseling provided: No Discussed family planning & contraception: Yes Contraception planned: unsure Counseling on safe resumption of sexual activity: Yes Counseling on gradual excercise: Yes Discussed and concerns (describe), provided support: Yes Referred to environmental education specialist: No Counseled on good nutrition, hydration, and self care: Yes Chronic & current problems reconciled on problem list: Yes Infant care discussed; questions answered: feeding and sleep Follow up: routine/prn Additional counseling & anticipatory guidance provided: discuss wound care. start walking, increase fluid, continue PNV, no sex. no heavy lifting. review latching and breast feeding position. discuss control. rtc 4 week control
== END 2025-01-31 15:22 | disposition home or self-care (01) ==
LOC: HODSOBC 14:17
PROVIDERS: Supervising Provider Advanced Practice Midwife; Visit Provider Advanced Practice Midwife
DX: Z39.2 Encounter for routine postpartum follow-up (principal); Z39.1 Encounter for care and examination of lactating mother
CPT/HCPCS: 99213; G0463

== ENCOUNTER 2025-03-08 12:57 | Outpatient (AMB) | payer MEDICAID, SELFPAY ==
[2025-03-08 13:13] VITALS: BP 133/83; PULSE 69; RESP 17; TEMP 36.6; O2SAT 98; BMI 31.8
--- NOTE | 2025-03-08 13:13 | AMBOBPPN_ITS ---
Vital Signs 03/08/25 13:13 Height 1.64 m Height Method Stated Weight 85.502 kg Weight Measurement Method Standing Scale BMI 31.8 BP 133/83 H Blood Pressure Source Automatic Cuff Blood Pressure Location Right Upper Arm Position Sitting Respiration 17 Pulse 69 Pulse Source Monitor Temp 97.9 F Temp Source Temporal Artery Scan Pulse Oximetry (%) 98 Oxygen Delivery Method Room Air Allergies/Home Meds Allergies & Medications Allergies No Known Allergies Allergy (Verified 03/08/25 13:15) Medication Reconciliation vit no.95-ferrous fumarate 28 mg-folic acid 800 mcg tablet () tab PO 12/14/24 [History Confirmed 03/08/25] Intake Visit Data Collection New Patient or Established: Established Patient (seen at [facility] within 3 years) Reason for Visit:: Seen by Clinical Staff ONLY (RN/MA): No Managing Director Atlas Required: No Do You Feel Safe at Home: Yes Authorities Contacted: N/A PCP or OBGYN visit in last 3 months: Yes Date of Last PCP or OBGYN visit: 01/31/25 Hx Now: No Are you currently on any form of Control: No Pain Present Currently: Yes (INCISION) Pain scale:: 5 Smoking Status Smoking Status: 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: Past Medical History Past Medical History: No Hx Neurological Disorders, No Hx Breast Cancer, No Hx Cardiac Disorders, No Hx Hypertension (FATHER), No Hx Blood Disorders, No Hx Anemia, No Hx Gastrointestinal Disorders, No Hx Renal Disease, No Hx Diabetes Mellitus Type 1 and No Hx Diabetes Mellitus Type 2 Questionnaires Covid-19 Vaccine Questionnaire Has patient been vacinated for Covid-19 Have you been vacinated for Covid-19: No Social History Living Situation History Marital Status: Lives With: Family Housing: Apartment Tobacco History Smoking Status: 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 Second Hand Smoke Exposure: No Alcohol History Alcohol Intake: Never Domestic Abuse History Do You Feel Safe at Home: Yes EPDS - PP Depression Screening Doyle Pospartum Depression Screen I have been able to laugh and see the funny side of things: (1) Not quite so much now I have looked forward with enjoyment to things: (0) As much as I ever did I have blamed myself unnecessarily when things went wrong: (1) Not very often I have been anxious or worried for no good reason: (2) Yes, sometimes I have felt scared or panicky for no very good reason: (1) No, not much Things have been getting on top of me: (0) No, I have been coping as well as ever I have been so unhappy that I have had difficulty sleeping: (1) Not very often I have felt sad or miserable: (1) Not very often I have been so unhappy that I have been crying: (1) Only occasionally The thought of harming myself has occurred to me: (0) Never EPDS completed yes HPI Interval History: 29 yo primary c/s for failed induction 01/06/25. baby girl, 6-9. patient was induced for elevated BMI and Hypertention at 38 week. happy, no depression, c/o increased back pain. no UTI complaints. tylenol for back pain. pain is worse when bending and lifting baby. lmp 02/22/25. patient has not resumed SEX. Good suppor at home. 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 abdomen soft, non tnder, low transeverse incision intact, well healed, uterus well involuted, no lochia Office Procedures OB Clinic LOC & Office Proc's Nursing/Assessment Patient Status: Established Patient OB Clinic Nursing Assessment: Medication Reconciliation, Update PMH in EMR and Vital Signs OB Clinic Coordination of Care: Complex Care and Chronic Disease 1-5, Consent,re cords obtained, informed consent, Education Simp Pt/Fam and Staff clarify orders Established Patient Charge Established Patient Point Assignment: 85 Post Follow-up Visit Post Follow up Visit: Yes Assessment & Plan Diagnosis / Problem List (1) 6 weeks follow-up: Status: Acute Plan extend FOB tiem off for 2 week. discuss comfort measure. tylenol 650 q6 as needed, try using a girdle. discuss body mechanics and lifting. resume core strength exercise and walk. discuss condom and compliance, rtc 3 year for pap Care Reviewed delivery summary and any complications: Yes Perineal / incision healing noted: Yes Screened for depression: Yes Depression counseling provided: No Discussed family planning & contraception: Yes Contraception planned: condom Counseling on safe resumption of sexual activity: Yes Counseling on gradual excercise: Yes Discussed and concerns (describe), provided support: No Referred to credentials specialist: No Counseled on good nutrition, hydration, and self care: Yes Reviewed vaccine status: No Chronic & current problems reconciled on problem list: Yes care discussed; questions answered: feeding Follow up: routine/prn
== END 2025-03-08 13:29 | disposition home or self-care (01) ==
PROVIDERS: Supervising Provider Advanced Practice Midwife; Visit Provider Advanced Practice Midwife
DX: Z39.2 Encounter for routine postpartum follow-up (principal)